=== PATIENT | male | born 1945 | race Caucasian/White ===

== ENCOUNTER 2023-01-05 10:08 | Outpatient (OUT) | payer MEDICARE, SELFPAY ==
[2023-01-05 17:25] LABS: Prostate Specific Antigen Dx <0.13 ng/mL (<=4.00)
== END 2023-01-05 10:09 ==
LOC: LAB 10:08
PROVIDERS: PCP Family Medicine; Visit Provider Urology
DX: C61 Malignant neoplasm of prostate (principal)
CPT/HCPCS: 36415; 84153

== ENCOUNTER 2023-07-20 10:08 | Outpatient (OUT) | payer MEDICARE, SELFPAY ==
[2023-07-20 11:11] LABS: Prostate Specific Antigen Dx <0.13 ng/mL (<=4.00)
== END 2023-07-20 10:09 | disposition home or self-care (01) ==
LOC: LAB 10:10
PROVIDERS: PCP Family Medicine; Visit Provider Urology
DX: C61 Malignant neoplasm of prostate (principal); N40.1 Benign prostatic hyperplasia with lower urinary tract symptoms; Z87.442 Personal history of urinary calculi
CPT/HCPCS: 36415; 84153

== ENCOUNTER 2024-01-06 09:39 | Outpatient (OUT) | payer MEDICARE, SELFPAY ==
--- OUTSIDE RECORDS SUMMARY | 2024-01-06 09:46 | XMS_ITS | CCD ---
Author Organization [facility] ion Partnership [facility] Care Team Providers Care Manager General Name Role Phone Ramonita LEON MICKI Unavailable Unavailable ENGELER G MICKI Unavailable Unavailable ENGELER G MICKI Unavailable Unavailable ENGELER, G MICKI Unavailable Unavailable Elan Perez Primary Care Physician TYREL, DR SHEARER Attending Unavailable CHRISTIANNE, DR GRAY Primary Care Unavailable TYREL, DR SHEARER Admitting Unavailable TYREL, DR SHEARER Consulting Unavailable MAISHA, DR KATHY Pastrana Consulting Unavailable TYREL, DR SHEARER Attending Unavailable CHRISTIANNE, DR GRAY Primary Care Unavailable TYREL, DR SHEARER Admitting Unavailable TYREL, DR SHEARER Consulting Unavailable Inocencio SARAH Attending Unavailable TYREL, Inocencio Casiano Attending Unavailable Inocencio SARAH Attending Unavailable Allergies Allergy Classification Reported Allergen(s) Allergy Type Date of Onset Reaction(s) Facility Opioid Agonists (1 source) Meperidine; Translations: [meperidine] Drug Allergy 04-14-2015 [facility] Repository Promethazine (1 source) Promethazine; Translations: [promethazine] Drug Allergy 04-14-2015 [facility] Repository (1 source) meperidine; Translations: [MEPERIDINE (PF)] Drug Allergy 04-15-2015 [facility] Repository (1 source) promethazine; Translations: [PROMETHAZINE HCL] Drug Allergy 04-15-2015 [facility] Repository (4 sources) Meperidine; Translations: [meperidine] Drug Allergy 04-14-2015 [facility] (4 sources) Promethazine; Translations: [promethazine] Drug Allergy 04-14-2015 [facility] Medications Current Medications Medication Drug Class(es) Dates Sig (Normalized) Sig (Original) Acidophilus Probiotic Blend (4 sources) Start: 03-09-2019 take 1 capsule by mouth once daily Acidophilus Probiotic Blend 1 cap(s), Oral, Daily Start Date: 03/09/19 Status: Ordered alendronic acid 70 mg oral tablet (4 sources) Bisphosphonate Start: 05-06-2023 take 1 tablet by mouth every week Fosamax 70 mg Tab 70 mg = 1 tab(s), Oral, qWeek, # 12 tab(s), Refills(s) 3, Pharmacy: [facility]/pharmacy #[id number], 176, cm, 01/14/23 9:02:00 EDT, Height/Length Dosing, 77.9, kg, 01/14/23 9:02:00 EDT, Weight Dosing Start Date: 05/06/23 Status: Ordered Start: 05-13-2022 take 1 tablet by shawna th every week Fosamax 70 mg oral tablet 70 mg = 1 tab(s), Oral, qWeek, # 13 tab(s), Refills(s) 3, Pharmacy: [facility]/pharmacy #[id number], 175, cm, 01/18/22 10:47:00 EDT, Height/Length Dosing, 80.4, kg, 01/18/22 10:47:00 EDT, Weight Dosing Start Date: 05/13/22 Status: Ordered Start: 06-08-2021 take 1 tablet by shawna th every week Fosamax 70 mg oral tablet 70 mg = 1 tab(s), Oral, qWeek, # 12 tab(s), Refills(s) 3, Pharmacy: [facility]/pharmacy #[id number], 175, cm, 01/09/21 8:30:00 EDT, Height/Length Dosing, 80, kg, 01/09/21 8:30:00 EDT, Weight Dosing Start Date: 06/08/21 Status: Ordered bicalutamide 50 mg oral tablet (4 sources) Androgen Receptor Inhibitor Start: 06-06-2023 take 1 tablet by mouth every twenty-four hours Casodex 50 mg Tab 50 mg = 1 tab(s), Oral, q24hr, # 90 tab(s), Refills(s) 3, Pharmacy: [facility]/pharmacy #[id number], 176, cm, 01/14/23 9:02:00 EDT, Height/Length Dosing, 77.9, kg, 01/14/23 9:02:00 EDT, Weight Dosing Start Date: 06/06/23 Status: Ordered Start: 05-28-2022 take 1 tablet by shawna th every twenty-four hours Casodex 50 mg Tab 50 mg = 1 tab(s), Oral, q24hr, # 90 tab(s), Refills(s) 3, Pharmacy: [facility]/pharmacy #[id number], 175, cm, 01/18/22 10:47:00 EDT, Height/Length Dosing, 80.4, kg, 01/18/22 10:47:00 EDT, Weight Dosing Start Date: 05/28/22 Status: Ordered Start: 05-26-2021 take 1 tablet by shawna th every twenty-four hours Casodex 50 mg Tab 50 mg = 1 tab(s), Oral, q24hr, # 90 tab(s), Refills(s) 3, Pharmacy: [facility]/pharmacy #[id number], 175, cm, 01/09/21 8:30:00 EDT, Height/Length Dosing, 80, kg, 01/09/21 8:30:00 EDT, Weight Dosing Start Date: 05/26/21 Status: Ordered Fish Oils (4 sources) Start: 03-09-2019 Fish Oil 1,200 mg, Oral Start Date: 03/09/19 Status: Ordered 1.5 ml leuprolide acetate 30 mg/ml prefilled syringe (4 sources) Gonadotropin Releasing Hormone Receptor Agonist Start: 03-09-2019 Lupron Depot 45 mg/6 months intramuscular injection, extended release IntraMuscular, q6mo Start Date: 03/09/19 Status: Ordered Multi Vitamins oral tablet (4 sources) Start: 03-09-2019 take 1 tablet by mouth once daily Multi Vitamins oral tablet 1 tab(s), Oral, Daily Start Date: 03/09/19 Status: Ordered Super B Complex (4 sources) Start: 03-09-2019 take 1 tablet by mouth once daily Super B Complex 1 tab(s), Oral, Daily Start Date: 03/09/19 Status: Ordered tamsulosin hydrochloride 0.4 mg oral capsule (4 sources) alpha-Adrenergic Jarett Start: 01-14-2023 take 1 capsule by mouth twice daily Flomax 0.4 mg Cap 0.4 mg = 1 cap(s), Oral, BID, # 180 cap(s), Refills(s) 3, [id number] 176, cm, 01/14/23 9:02:00 EDT, Height/Length Dosing, 77.9, kg, 01/14/23 9:02:00 EDT, Weight Dosing Start Date: 01/14/23 Status: Ordered Start: 01-18-2022 take 1 capsule by [facility] twice daily Flomax 0.4 mg Cap 0.4 mg = 1 cap(s), Oral, BID, # 180 cap(s), Refills(s) 3, [id number] 175, cm, 01/18/22 10:47:00 EDT, Height/Length Dosing, 80.4, kg, 01/18/22 10:47:00 EDT, Weight Dosing Start Date: 01/18/22 Status: Ordered Problems Problem Classification Problem Date Documented Da te Episodic/Chronic Calculus of urinary tract (17 sources) History of calculus of kidney; Translations: [Personal history of urinary calculi] Onset: 01-18-2022 Episodic Cancer of prostate (13 sources) Malignant neoplasm of prostate; Translations: [Carcinoma of prostate] Onset: 03-30-2017 Chronic Cancer of prostate (4 sources) History of malignant neoplasm of prostate 05-18-2019 Episodic Genitourinary symptoms and ill-defined conditions (20 sources) Dysuria; Translations: [Incomplete emptying of bladder] 05-18-2019 Episodic Hyperplasia of prostate (9 sources) Benign prostatic hypertrophy with outflow obstruction; Translations: [Benign prostatic hyperplasia with lower urinary tract symptoms] Onset: 01-18-2022 Chronic Other diseases of bladder and urethra (4 sources) Spasm of bladder 05-18-2019 Chronic Other diseases of kidney and ureters (1 source) Urinary tract obstruction; Translations: [Other obstructive and reflux uropathy] Onset: 01-12-2023 Episodic Other screening for suspected conditions (not mental disorders or infectious disease) (4 sources) Raised prostate specific antigen 11-02-2019 Episodic Secondary malignancies (4 sources) Secondary malignant neoplasm of bone 11-02-2019 Chronic Unclassified (1 source) Unknown / UNK(Unknown) Onset: 03-30-2017 Results Test Name Value Interpretation Reference Range Facility Insurance Correspondenceon 0 01-04-2024 Insurance Correspondence [id number]#[id number] Normal [facility] Patient Educationon 07-29-20 Patient Education Oncology Prostate Cancer The prostate is a small gland that produces fluid that makes up semen (seminal fluid). It is located below the bladder in men, in front of the rectum. Prostate cancer is the abnormal growth of cells in the prostate gland. What are the causes? The exact cause of this condition is not known. What increases the risk? You are more likely to develop this condition if: ? You are 65 years of age or older. ? You have a family history of prostate cancer. ? You have a family history of breast and ovarian cancer. ? You have genes that are passed from parent to child (inherited), such as BRCA1 and BRCA2. ? You have Mason syndrome. men and men of descent are diagnosed with prostate cancer at higher rates than other men. The reasons for this are not well understood and are likely due to a combination of genetic and environmental factors. What are the signs or symptoms? Symptoms of this condition include: ? Problems with urination. This may include: ? A weak or interrupted flow of urine. ? Trouble starting or stopping urination. ? Trouble emptying the bladder all the way. ? The need to urinate more often, especially at night. ? Blood in urine or semen. ? Persistent pain or discomfort in the lower back, lower abdomen, or hips. ? Trouble getting an erection. ? Weakness or numbness in the legs or feet. How is this diagnosed? This condition can be diagnosed with: ? A digital rectal exam. For this exam, a health care provider inserts a gloved finger into the rectum to feel the prostate gland. ? A blood test called a prostate-specific antigen (PSA) test. ? A procedure in which a sample of tissue is taken from the prostate and checked under a microscope (prostate biopsy). ? An imaging test called transrectal ultrasonography. Once the condition is diagnosed, tests will be done to determine how far the cancer has spread. This is called staging the cancer. Staging may involve imaging tests, such as a bone scan, CT scan, PET scan, or MRI. Stages of prostate cancer The stages of prostate cancer are as follows: ? Stage 1 (I). At this stage, the cancer is found in the prostate only. The cancer is not visible on imaging tests, and it is usually found by accident, such as during prostate surgery. ? Stage 2 (II). At this stage, the cancer is more advanced than it is in stage 1, but the cancer has not spread outside the prostate. ? Stage 3 (III). At this stage, the cancer has spread beyond the outer layer of the prostate to nearby tissues. The cancer may be found in the seminal vesicles, which are near the bladder and the prostate. ? Stage 4 (IV). At this stage, the cancer has spread to other parts of the body, such as the lymph nodes, bones, bladder, rectum, liver, or lungs. Prostate cancer grading Prostate cancer is also graded according to how the cancer cells look under a microscope. This is called the Surrency score and the total score can range from 6?10, indicating how likely it is that the cancer will spread (metastasize) to other parts of the body. The higher the score, the greater the likelihood that the cancer will spread. ? Bart 6 or lower: This indicates that the cancer cells look similar to normal prostate cells (well differentiated). ? Surrency 7: This indicates that the cancer cells look somewhat similar to normal prostate cells (moderately differentiated). ? Surrency 8, 9, or 10: This indicates that the cancer cells look very different than normal prostate cells (poorly differentiated). How is this treated? Treatment for this condition depends on several factors, including the stage of the cancer, your age, personal preferences, and your overall health. Talk with your health care provider about treatment options that are recommended for you. Common treatments include: ? Observation for early stage prostate cancer (active surveillance). This involves having exams, blood tests, and in some cases, more biopsies. For some men, this is the only treatment needed. ? Surgery. Types of surgeries include: ? Open surgery (radical prostatectomy). In this surgery, a larger incision is made to remove the prostate. ? A laparoscopic radical prostatectomy. This is a surgery to remove the prostate and lymph nodes through several small incisions. It is often referred to as a minimally invasive surgery. ? A robotic radical prostatectomy. This is laparoscopic surgery to remove the prostate and lymph nodes with the help of robotic arms that are controlled by the surgeon. ? Cryoablation. This is surgery to freeze and destroy cancer cells. ? Radiation treatment. Types of radiation treatment include: ? External beam radiation. This type aims beams of radiation from outside the body at the prostate to destroy cancerous cells. ? Brachytherapy. This type uses radioactive needles, seeds, wires, or tubes that are implanted into the prostate gland. Like external be (more content not included)... Normal [facility] Urology Office/Clinic Noteon 07-29-2023 Urology Office/Clinic Note Chief Complaint 6m PSA possible Lupron HPI Staff 77 yo male here for 6 month f/u possible Lupron Inj (has been approved w/insurance). Previous Dx: prostate ca, BPH with obstruction, hx of kidney stones. S/p EBRT 06/2015. *Tamsulosin 0.4mg bid, Casodex 50mg qd, and Fosamax 1x/wk. Last Lupron given 07/19/22. PSA 07/20/23 - <0.13 Pt denies all urinary complaints. Denies any symptoms of Kidney Stones. History of Present Illness Tests reviewed: reviewed UA and PSA. I have reviewed the previous health record information and history for this patient from Dr. Sarah. I have reviewed and verified the staff HPI to be accurate for this encounter. There have been no associated fever, chills, flank pain, or blood in the urine. Denies any urinary infections since last encounter. Review of Systems PHQ Score Initial Depression Screen Score: 0 SCORE ROS - Provider Constitutional: denies weight loss, denies hot flashes. Eyes: denies eye problems. Gastrointestinal: denies nausea, denies vomiting. Cardiovascular: denies chest pain or angina. Integumentary: no dryness Musculoskeletal: denies musculoskeletal symptoms. ENMT: denies otolaryngeal symptoms. Respiratory: no shortness of breath. Heme/Lymph: denies easy bleeding tendency, denies easy bruising tendency. Psychiatric: no confusion, no anxiety. Genitourinary: See HPI. Physical Exam Vitals & Measurements HR: 68(Peripheral) RR: 16 BP: 132/80 HT: 69 in HT: 176 cm WT: 77.9 kg WT: 171.38 lb BMI: 25.15 General Appearance: alert, no distress, well nourished, well developed male. Genitourinary: normal scrotum, normal testes, normal urethra, normal epididymis, normal vas deferens/spermatic cord. Flank Pain: none. Bladder: nonpalpable. Assessment/Plan 1. Prostate cancer (C61: Malignant neoplasm of prostate) PSA: 07/06/21 - 0.05 01/11/22 - 0.05 07/07/22 - 0.13 01/05/23 - <0.13 07/20/23 - <0.13 Original pathology showed Surrency 9 (4+5) in multiple cores. PSA prior to bx was 62. EBRT 06/2015. Taking Casodex 50mg QD and Fosamax 70mg 1x/wk. Taking calcium & Vit D. Last Lupron 01/14/23. Lupron 45 mgIM injection given today with no complications. Right glute. Pt. denies side effects at this time. Follow up in 6 months w/ PSA & Lupron or sooner if needed. 2. BPH with urinary obstruction (N40.1: Benign prostatic hyperplasia with lower urinary tract symptoms) Taking Flomax 0.4mg bid. UA today negative for blood and infection. No urinary concerns or bothersome sx. 3. History of kidney stones (Z87.442: Personal history of urinary calculi) KUB done 12/30/20 was unremarkable. Most recent KUB done at [facility] on 07/07/22 shows no acute abnormality. No recent imaging. Follow-up With When Contact Information TYREL HINES, Inocencio Casiano, URL [facility] [place] [id number]- Additional Instructions: 6 months w/ Lupron and PSA Patient Education Prostate Cancer IPaula, personally scribed for Dr. Sarah on 07/29/2023 12:30:58. . Documentation recorded by the scribePaula, accurately reflects the services(s) I performed and decisions made by me. Authenticated by Dr. Sarah on 07/29/2023 12:32:18. Problem List/Past Medical History Ongoing Bladder spasms BPH with urinary obstruction Dysuria History of kidney stones History of prostate cancer Incomplete emptying of bladder Kidney stones Metastasis to bone Microhematuria Nocturia Prostate cancer Ureteral stone Weak urinary stream Historical Elevated PSA Procedure/Surgical History Cystoscopic insertion of ureteric stent (05/17/2019), History of external beam radiation therapy (06/2015), Transrectal biopsy of prostate using ultrasound (US) guidance (02/04/2015), Colonoscopy (01/2015). Medications Acidophilus Probiotic Blend, 1 cap(s), Oral, Daily Casodex 50 mg Tab, 50 mg= 1 tab(s), Oral, q24hr, 3 refills Fish Oil, 1200 mg, Oral Flomax 0.4 mg Cap, 0.4 mg= 1 cap(s), Oral, BID, 3 refills Fosamax 70 mg Tab, 70 mg= 1 tab(s), Oral, qWeek, 3 refills Lupron Depot 45 mg/6 months intramuscular injection, extended release, IntraMuscular, q6mo Multi Vitamins oral tablet, 1 tab(s), Oral, Daily Super B Complex, 1 tab(s), Oral, Daily Allergies meperidine (AOF) promethazine (AOF) Social History Alcohol - Denies Alcohol Use, 01/14/2023 Substance Abuse - Denies Substance Abuse, 01/14/2023 Tobacco - Denies Tobacco Use, 01/14/2023 Never (less than 100 in lifetime) Tobacco Use:. Never Smokeless Tobacco Use:. Household tobacco concerns: No. Yes, 07/29/2023 Family History Acute myocardial infarction: Father. Primary malignant neoplasm of lung: Mother. Immunizations Vaccine Date Status Comments SARS-CoV-2 (COVID-19) [id number] 04/15/2022 Recorded SARS-CoV-2 (COVID-19) mRNA BNT-162b2 vax 11/04/2021 Recorded SARS-CoV-2 (COVID-19) Ad26 vaccine 04/27/2021 Recorded inf (more content not included)... [facility] Comment on above: Result Comment: Elec tronically Signed By: Inocencio SARAH MD\.br\Date and Time Signed: 07/29/23 12:32 EST\.br\Electronically Co-Signed By: Paula Madison.br\Date and Time Co-Signed: 07/29/23 12:31 EST Lab Reportson 07-26-2023 Lab Reports [id number]#[id number] [facility] Insurance Correspondenceon 1 08-27-2022 Insurance Correspondence [id number]#1.00TIFF Normal [facility] Pre-Certification Formon Pre-Certification Form [id number]#[id number] Normal [facility] Lab Report[facility] 01-17-2023 Lab Reports [id number]#[id number]:127 Normal [facility] Lab Report[facility] 01-14-2023 Lab Reports [id number]:127 Normal [facility] Patient Educationon 01-15-20 Patient Education Urology Benign Prostatic Hyperplasia Benign prostatic hyperplasia (BPH) is an enlarged prostate gland that is caused by the normal aging process. The prostate may get bigger as a man gets older. The condition is not caused by cancer. The prostate is a walnut-sized gland that is involved in the production of semen. It is located in front of the rectum and below the bladder. The bladder stores urine. The urethra carries stored urine out of the body. An enlarged prostate can press on the urethra. This can make it harder to pass urine. The buildup of urine in the bladder can cause infection. Back pressure and infection may progress to bladder damage and kidney (renal) failure. What are the causes? This condition is part of the normal aging process. However, not all men develop problems from this condition. If the prostate enlarges away from the urethra, urine flow will not be blocked. If it enlarges toward the urethra and compresses it, there will be problems passing urine. What increases the risk? This condition is more likely to develop in men older than 50 years. What are the signs or symptoms? Symptoms of this condition include: ? Getting up often during the night to urinate. ? Needing to urinate frequently during the day. ? Difficulty starting urine flow. ? Decrease in size and strength of your urine stream. ? Leaking (dribbling) after urinating. ? Inability to pass urine. This needs immediate treatment. ? Inability to completely empty your bladder. ? Pain when you pass urine. This is more common if there is also an infection. ? Urinary tract infection (UTI). How is this diagnosed? This condition is diagnosed based on your medical history, a physical exam, and your symptoms. Tests will also be done, such as: ? A post-void bladder scan. This measures any amount of urine that may remain in your bladder after you finish urinating. ? A digital rectal exam. In a rectal exam, your health care provider checks your prostate by putting a lubricated, gloved finger into your rectum to feel the back of your prostate gland. This exam detects the size of your gland and any abnormal lumps or growths. ? An exam of your urine (urinalysis). ? A prostate specific antigen (PSA) screening. This is a blood test used to screen for prostate cancer. ? An ultrasound. This test uses sound waves to electronically produce a picture of your prostate gland. Your health care provider may refer you to a specialist in kidney and prostate diseases (urologist). How is this treated? Once symptoms begin, your health care provider will monitor your condition (active surveillance or watchful waiting). Treatment for this condition will depend on the severity of your condition. Treatment may include: ? Observation and yearly exams. This may be the only treatment needed if your condition and symptoms are mild. ? Medicines to relieve your symptoms, including: ? Medicines to shrink the prostate. ? Medicines to relax the muscle of the prostate. ? Surgery in severe cases. Surgery may include: ? Prostatectomy. In this procedure, the prostate tissue is removed completely through an open incision or with a laparoscope or robotics. ? Transurethral resection of the prostate (TURP). In this procedure, a tool is inserted through the opening at the tip of the penis (urethra). It is used to cut away tissue of the inner core of the prostate. The pieces are removed through the same opening of the penis. This removes the blockage. ? Transurethral incision (TUIP). In this procedure, small cuts are made in the prostate. This lessens the prostate's pressure on the urethra. ? Transurethral microwave thermotherapy (TUMT). This procedure uses microwaves to create heat. The heat destroys and removes a small amount of prostate tissue. ? Transurethral needle ablation (TUNA). This procedure uses radio frequencies to destroy and remove a small amount of prostate tissue. ? Interstitial laser coagulation (ILC). This procedure uses a laser to destroy and remove a small amount of prostate tissue. ? Transurethral electrovaporization (TUVP). This procedure uses electrodes to destroy and remove a small amount of prostate tissue. ? Prostatic urethral lift. This procedure inserts an implant to push the lobes of the prostate away from the urethra. Follow these instructions at home: ? Take [id number] and prescription medicines only as told by your health care provider. ? Monitor your symptoms for any changes. Contact your health care provider with any changes. ? Avoid drinking large amounts of liquid before going to bed or out in public. ? Avoid or reduce how much caffeine or alcohol you drink. ? Give yourself time when you urinate. ? Keep all follow-up visits. This is important. Contact a health care provider if: ? You have unexplained back pain. ? Your symptoms do not get better with treatment. ? You develop side effects from the medicine (more content not included)... Normal [facility] Urology Office/Clinic Noteon 01-14-2023 Urology Office/Clinic Note Chief Complaint Patient is here for 6 month follow up with PSA HPI Staff Patient is here for 6 month follow up to Prostate cancer, S/P EBRT completed in 06/2015. Last Lupron was given 07/19/22. Patient also seen for BPH with Obs, history of kidney stones. PSA was done 01/05/2023 <0.13. Tamsulosin 0.4 mg BID and Casodex 50mg qd therapies. Dysuria: Denies Incomplete bladder emptying: Denies Hematuria: Denies Frequency: Denies Urgency: Denies Nocturia: Mild, 1 time per night for 2 years Stream: Good stream Leaking: Denies Post void dripping: Denies Wearing pads/ Depends: Denies Urge incontinence: Denies Stress incontinence: Denies Incontinence without Sensory Awareness: Denies Abdominal pain: Denies Flank pain: Denies History of Present Illness Tests reviewed: reviewed UA I have reviewed the previous health record information and history for this patient from Dr. Sarah. I have reviewed and verified the staff HPI to be accurate for this encounter. There have been no associated fever, chills, flank pain, or blood in the urine. Denies any urinary infections since last encounter. Review of Systems PHQ Score Initial Depression Screen Score: 0 ROS - Provider Constitutional: denies weight loss, denies hot flashes. Eyes: denies eye problems. Gastrointestinal: denies nausea, denies vomiting. Cardiovascular: denies chest pain or angina. Integumentary: no dryness Musculoskeletal: denies musculoskeletal symptoms. ENMT: denies otolaryngeal symptoms. Respiratory: no shortness of breath. Heme/Lymph: denies easy bleeding tendency, denies easy bruising tendency. Psychiatric: no confusion, no anxiety. Genitourinary: denies dysuria, denies hematuria, denies discharge, denies urinary frequency, denies urinary hesitancy, denies nocturia, denies incontinence, denies genital sores, denies decreased libido, and denies erectile dysfunction. Physical Exam Vitals & Measurements HR: 89(Peripheral) RR: 18 BP: 144/82 HT: 69 in HT: 176 cm WT: 77.9 kg WT: 171.38 lb BMI: 25.15 General Appearance: alert, no distress, well nourished, well developed male. Genitourinary: normal scrotum, normal testes, normal urethra, normal epididymis, normal vas deferens/spermatic cord. Flank Pain: none. Bladder: nonpalpable. Assessment/Plan 1. Prostate cancer (C61: Malignant neoplasm of prostate) PSA: 07/06/21 - 0.05 01/11/22 - 0.05 07/07/22 - 0.13 01/05/23 - <0.13 S/p EBRT 06/2015. Pt continues taking Casodex 50mg QD and Fosamax 70mg 1x/wk. Pt will call for refills. Last Lupron injection given 07/19/22. Discussed PSA, remains stable and low. Will continue to monitor. Lupron 45 mgIM injection given today with no complications. Left glute. Pt denies side effects at this time. All questions/concerns were discussed. Pt to call the office if he encounters any issues prior. Pt acknowledges understanding and agrees with plan. Follow up in 6 months with PSA or sooner if needed. Pt understands and agrees with plan. 2. BPH with urinary obstruction (N40.1: Benign prostatic hyperplasia with lower urinary tract symptoms) Pt continues taking Flomax 0.4mg BID. Refill sent to pharmacy. UA today negative for blood and infection. Pt denies any urinary habit complaints. 3. History of kidney stones (Z87.442: Personal history of urinary calculi) KUB done 12/30/20 was unremarkable. Most recent KUB done at [facility] on 07/07/22 shows no acute abnormality. Pt denies any stone complications since prior encounter will continue to monitor. Follow up in 6 months with KUB. Other obstructive and reflux uropathy (N13.8: Other obstructive and reflux uropathy) Follow-up With When Contact Information Inocencio SARAH MD, URL In 6 months [facility] [address], [place] [address]- [phone] Additional Instructions: PSA Patient Education Benign Prostatic Hyperplasia I, Janessa Gomez, personally scribed for Dr. Sarah on 01/14/2023 09:47:00. . Documentation recorded by the scribe, Janessa Gomez, accurately reflects the services(s) I performed and decisions made by me. Authenticated by Dr. Sarah on 01/14/2023 09:48:59. Problem List/Past Medical History Ongoing Bladder spasms BPH with urinary obstruction Dysuria History of kidney stones History of prostate cancer Incomplete emptying of bladder Kidney stones Metastasis to bone Microhematuria Nocturia Prostate cancer Ureteral stone Weak urinary stream Historical Elevated PSA Procedure/Surgical History Cystoscopic insertion of ureteric stent (05/17/2019), History of external beam radiation therapy (06/2015), Transrectal biopsy of prostate using ultrasound (US) guidance (02/04/2015), Colonoscopy (01/2015). Medications Acidophilus Probiotic Blend, 1 cap(s), Oral, Daily Casodex 50 mg Tab, 50 mg= 1 tab(s), Oral, q24hr, 3 refills Fish Oil, 1200 mg, Oral Flomax 0.4 mg Cap, 0.4 mg= 1 cap(s), Oral, BI (more content not included)... Normal [facility] Comment on above: Result Comment: Elec tronically Signed By: Inocencio SARAH MD\.br\Date and Time Signed: 01/14/23 09:49 EDT\.br\Electronically Co-Signed By: Janessa Gomez.jaime\Date and Time Co-Signed: 01/14/23 09:47 EDT XR KUB 1 VIEWon 07-07-2022 XR KUB 1 VIEW EXAMINATION: XR KUB 1 VIEW HISTORY: Primary malignant neoplasm of prostate COMPARISON: No relevant comparison available. FINDINGS: BOWEL GAS PATTERN: No abnormal dilation or deviation. CALCIFICATIONS: None significant. OTHER: Moderate bilateral hip osteoarthropathy. Degenerative spondylosis of the spine IMPRESSION: No acute abnormality Electronically authenticated by: KATHY FERRERA Date: 2022-07-07 11:50 Normal [facility] CNOVon 04-06-2017 CNOV Office Visit (RADTSA) -------LORRAINE INFANTE ([id number]) 1945 MDate Time Provider Department04/06/17 11:00 AM Ramonita LEON During your visit today, we recorded the following information about you: Blood pressure Weight 170/84 79 kgCindy Bear, RN, RN 04/06/2017 11:05 AM SignedAUA 14Cindy Bear RNG Micki Leon MD 04/08/2017 2:42 PM SignedRadiation Oncology - Follow Up NotePATIENT NAME: Lorraine InfantePATIENT : Prostate cancer, adenocarcinomaGleason score 9(4,5)Pretreatment PSA: PSA 62.1With solitary pelvic metastatic focus Stage: [id number] Course SummaryTreatment Technique: IMRT;RA Imaging: kv cone beam CT image guidanceDate Start: 04/15/2015 Date Complete: 06/16/2015Treatment Area Number [employer] Number of Fractions (Elapsed Days) DosePelvis including left ischium 2 6MV 28(37) 5040cGyProstate 2 6MV 16(24) 2880cGyTotal Prostate 44(61) 7920cGyINTERVAL HISTORY: The patient is in today for a follow-up. Overall doingwell. Denies any new problems.PSA HISTORY:PSA (ng/mL)Date Value03/30/2017 ANDlt;0.03008/18/2016 ANDlt;0.0306 ANDlt;0.0312 0.08 ALLERGIES:ALL ERGIESAllergen Reactions- Demerol [Meperidine* Other: See Comments hypotension- Phenergan [Prometha* Other: See Comments hypotensionMEDICATIONS:nabu metone (RELAFEN) 750 mg tablet Take 750 mg by mouth twice daily.leuprolide, 6 month, (LUPRON) sykt IM syringe kit Inject 45 mg intramuscularlyone time only.alendronate (FOSAMAX) 70 mg tablet Take 70 mg by mouth once each week.tamsulosin ER (FLOMAX) 0.4 mg cp24 twice daily.multivitamin tablet Take 1 tablet by mouth once daily.PERTINENT REVIEW OF SYSTEMS:Hematuria: noneDysuria: noneIncontinence: noneUrgency: mildCatheter use: noneMedications to aid urination: Flomax- Total AUA Score: 8Bowel movement frequency: 1-2/dayBowel movement quality: variable:Blood per rectum: nonePHYSICAL EXAM:BP 170/84 Wt 79 kg (174 lb 3.2 oz) BMI 26.1 kg/k4Utbmips Appearance: Well appearing, alert, in no acute distress, well-hydrated,well nourished..Skin: Skin color, texture, turgor normal, no suspicious rashes or lesions.Abdomen: Normal abdominal exam, Abdomen soft, non-tender. No masses,organomegaly.Rectal: Prostate without nodularityASSESSMENT/PLAN: Prostate cancer, locally advanced with oligometastatic diseaseincluding 1 foci involving the left pubic ramus. Patient doing well with continued undetectable PSA. No significant posttreatment problems. Patient has continued follow-up with Dr. Tyrel de la torre to receive Lupron.I've asked patient otherwise come back in one year for further post radiationfollow-up.Signed by: Ramonita Leon [facility] Provider: Ramonita LEON [[id number]]Allergies As of Date: 04/06/2017 Noted Allergy ReactionDEMEROL (MEPERIDINE (PF)) 04/15/2015 14 - Other: See Comments Comments: hypotensionPHENERGAN (PROMETHAZINE HCL) 04/15/2015 14 - Other: See Comments Comments: hypotensionDate Reviewed: 04/06/2017Reviewed by: Cindy QuinonesRnBairon Bear RN - Fully AssessedReason for Visit: Prostate Cancer [590]Primary Visit Diagnosis:Malignant neoplasm of prostate (HCC) [C61]Order(s):PSA/PROSTSPEC AG DIAG [SQPSA] Order #: [id number] FUTUREPrescriptions as of 04/06/2017 Sig: NABUMETONE 750 MG TABLET Take 750 mg by mouth twice da* LEUPROLIDE (6 MONTH) 45 MG IN* Inject 45 mg intramuscularly * ALENDRONATE 70 MG TABLET Take 70 mg by mouth once each* TAMSULOSIN 0.4 MG CAPSULE twice daily. MULTIVITAMIN TABLET Take 1 tablet by mouth once d*Medication notes this encounter NABUMETONE 750 MG TABLET >> Cindy Bear RN, RN 04/06/2017 10:52 AM >> CINDY BEAR TueApr 06, 2017 10:52 AM Received from: External Pharmacy Received Sig: TAKE 1 TABLET BY MOUTH TWICE ADAYProblem List As Of Date 04/06/2017 Noted Resolved Malignant neoplasm of prostate (HCC) [C61] INVALID FOR*Visit Notes:>> Cindy Bear RN TueApr 06, 2017 10:53 AM Status: SignedAUA Mahogany Bear RNDisposition: Return in about 1 year (around 04/06/2018).Follow-up and Disposition History RecordedEncounter Number: [id number] Status:Closed by Ramonita LEON MD on 04/08/17 [facility] PROGRESSon 04-06-2017 PROGRESS HNO ID: [id number] thor: Ramonita Romeorervice: (none)Author Type: PhysicianType: Progress NotesFiled: 04/08/2017 2:42 PMNote Text:Radiation Oncology - Follow Up NotePATIENT NAME: Lorraine InfantePATIENT : Prostate cancer, adenocarcinomaGleason score 9(4,5)Pretreatment PSA: PSA 62.1With solitary pelvic metastatic focus Stage: [id number] Course SummaryTreatment Technique: IMRT;RA Imaging: kv cone beam CT image guidanceDate Start: 04/15/2015 Date Complete: 06/16/2015Treatment Area Number [employer] Number of Fractions (Elapsed Days)DosePelvis including left ischium 2 6MV 28(37) 5040cGyProstate 2 6MV 16(24) 2880cGyTotal Prostate 44(61) 7920cGyINTERVAL HISTORY: The patient is in today for a follow-up. Overall doingwell. Denies any new problems.PSA HISTORY:PSA (ng/mL)Date Value03/30/2017 <0.0301/ <0.0306 <0.0312/ 0.08 ALLERGIES:ALL ERGIESAllergen Reactions- Demerol [Meperidine* Other: See Comments hypotension- Phenergan [Prometha* Other: See Comments hypotensionMEDICATIONS:nabu metone (RELAFEN) 750 mg tablet Take 750 mg by mouth twice daily.leuprolide, 6 month, (LUPRON) sykt IM syringe kit Inject 45 mgintramuscularly one time only.alendronate (FOSAMAX) 70 mg tablet Take 70 mg by mouth once each week.tamsulosin ER (FLOMAX) 0.4 mg cp24 twice daily.multivitamin tablet Take 1 tablet by mouth once daily.PERTINENT REVIEW OF SYSTEMS:Hematuria: noneDysuria: noneIncontinence: noneUrgency: mildCatheter use: noneMedications to aid urination: Flomax- Total AUA Score: 8Bowel movement frequency: 1-2/dayBowel movement quality: variable:Blood per rectum: nonePHYSICAL EXAM:BP 170/84 Wt 79 kg (174 lb 3.2 oz) BMI 26.1 kg/w6Tekqrob Appearance: Well appearing, alert, in no acute distress,well-hydrated, well nourished..Skin: Skin color, texture, turgor normal, no suspicious rashes or lesions.Abdomen: Normal abdominal exam, Abdomen soft, non-tender. No masses,organomegaly.Rectal: Prostate without nodularityASSESSMENT/PLAN: Prostate cancer, locally advanced with oligometastaticdisease including 1 foci involving the left pubic ramus. Patient doing well with continued undetectable PSA. No significantpost treatment problems. Patient has continued follow-up with Dr. Benjamin continues to receive Lupron.I've asked patient otherwise come back in one year for further postradiation follow-up.Signed by: Ramonita Leon MD Normal [facility] PSA, Diagnosticon 03-30-2017 PSA, Diagnostic <0.03 Normal 0.00-2.59 [facility] Comment on above: Result Comment: Divya rod PSA test methodology used is the Electrochemiluminescence Immunoassay.For an individual patient, the significance of a PSA level should be interpreted in a broad clinical context, including age, race, family history, digital rectal exam, prostate size, results of prior testing (prostate biopsy, free PSA, PCA3), and use of 5-alpha reductase inhibitors.Considering the high incidence of asymptomatic cancer in the general population that may not pose an ultimate risk to a patient, the decision to recommend urological evaluation or prostate biopsy should be individualized after consideration of all these factors.REFERENCE:Ben Judd M.D., M.P.H., Roly Riddle M.D., Ph.D., Gio Marshall M.D., Janice Diaz, M.P.H., Sherlyn Van Sc.D. Effect of Verification Bias on Screening for Prostate Cancer by Measurement of Prostatic Specific Antigen. N Engl J Med 2003,349:335-42. Performed By: #### P SA ####[facility] [address] [place], [place] [phone] Vital Signs Date Time Vital Sign Value Performing Clinician Nicolas torres 07-29-2023 11:05-0500 Blood Pressure Location Inocencio SARAH [facility] 07-29-2023 11:05-0500 Diastolic blood pressure 80 mm[Hg] Inocencio SARAH [facility] 07-29-2023 11:05-0500 Heart rate 68 /min Inocencio SARAH [facility] 07-29-2023 11:05-0500 Respiratory rate 16 /min Inocencio SARAH [facility] 07-29-2023 11:05-0500 Systolic blood pressure 132 mm[Hg] Inocencio SARAH [facility] 01-14-2023 09:42-0400 Diastolic blood pressure 82 mm[Hg] Inocencio SARAH [facility] 01-14-2023 09:42-0400 Heart rate 89 /min Inocencio SARAH [facility] 01-14-2023 09:42-0400 Mean blood pressure 103 mm[Hg] Inocencio SARAH [facility] 01-14-2023 09:42-0400 Respiratory rate 18 /min Inocencio SARAH [facility] 01-14-2023 09:42-0400 Systolic blood pressure 144 mm[Hg] Inocencio SARAH [facility] 01-14-2023 08:58-0400 Blood Pressure Location Inocencio SARAH [facility] 01-14-2023 08:58-0400 Diastolic blood pressure 93 mm[Hg] Inocencio SARAH [facility] 01-14-2023 08:58-0400 Heart rate 82 /min Inocencio SARAH [facility] 01-14-2023 08:58-0400 Respiratory rate 18 /min Inocencio SARAH [facility] 01-14-2023 08:58-0400 Systolic blood pressure 166 mm[Hg] Inocencio SARAH [facility] 07-19-2022 10:03-0500 Blood Pressure Location Inocencio SARAH [facility] 07-19-2022 10:03-0500 Diastolic blood pressure 82 mm[Hg] Inocencio SARAH [facility] 07-19-2022 10:03-0500 Heart rate 74 /min Inocencio SARAH [facility] 07-19-2022 10:03-0500 Respiratory rate 16 /min Inocencio SARAH [facility] 07-19-2022 10:03-0500 Systolic blood pressure 140 mm[Hg] Inocencio SARAH [facility] 01-18-2022 10:39-0400 Blood Pressure Location Inocencio SARAH [facility] 01-18-2022 10:39-0400 Diastolic blood pressure 90 mm[Hg] Inocencio SARAH [facility] 01-18-2022 10:39-0400 Heart rate 75 /min Inocencio SARAH [facility] 01-18-2022 10:39-0400 Respiratory rate 16 /min Inocencio SARAH [facility] 01-18-2022 10:39-0400 Systolic blood pressure 140 mm[Hg] Inocencio SARAH [facility] Encounters Encounter Date Encounter Type Care Provider Facility Start: 01-23-2024 ambulatory Inocencio Salmoni ty:[facility] [place] Start: 07-29-2023 End: 07-29-2023 ambulatory Inocencio SARAH Facility:[facility] [place] Start: 07-29-2023 End: 07-29-2023 Patient encounter procedure Inocencio SARAH [facility] Start: 01-14-2023 End: 01-14-2023 ambulatory Inocencio SARAH Facility:[facility] [place] Start: 01-14-2023 End: 01-14-2023 Patient encounter procedure Inocencio SARAH [facility] Start: 07-19-2022 End: 07-19-2022 Patient encounter procedure Inocencio SARAH [facility] Start: 07-07-2022 End: 07-08-[address] INOCENCIO SARAH Facility:[facility] Start: 01-18-2022 End: 01-18-2022 Patient encounter procedure Inocencio SARAH [facility] Start: 01-11-2022 End: 01-12-[address] INOCENCIO SARAH Facility:[facility] Start: 04-06-2017 End: 04-11-2017 Ambulatory Ramonita LEON [facility] Start: 03-30-2017 End: 03-30-2017 Ambulatory Ramonita LEON [facility] Procedures Date Procedure Procedure Detail Performing Clinician Start: 07-07-[address] JOYCELYN SARAH Comment on above: Performed By: #### P SAD #### [facility] [address] [place] [address] Dr. Shanita Hayden Start: 01-11-[address] JOYCELYN SARAH Comment on above: Performed By: #### P SAD #### [facility] [address] [place] [address] Dr. Shanita Hayden Start: 05-17-2019 Cystoscopic insertio n of ureteric stent Inocenciogermania SARAH Start: 06-01-2015 History of external beam radiation therapy Inocenciogermania SARAH Comment on above: Prostate Cancer Start: 02-04-2015 Transrectal biopsy o f prostate using ultrasound guidance Inocenciogermania SARAH Start: 01-29-2015 Colonoscopy Inocencio JEWELL Immunizations Immunization Date Immunization Notes Care Provider [place] 04-15-2022 SARS-CoV-2 (COVID-19 ) [id number] Inocenciogermania SARAH [facility] 11-04-2021 SARS-CoV-2 (COVID-19 ) mRNA BNT-162b2 vax Inocencio SARAH [facility] 04-27-2021 SARS-CoV-2 (COVID-19 ) Ad26 vaccine, recombinant Inocencio SARAH [facility] 04-26-2021 influenza virus vaccine, unspecified formulation Inocenciogermania SARAH [facility] 10-13-2020 SARS-CoV-2 (COVID-19 ) mRNA BNT-162b2 vax Inocencio TYREL [facility] 09-18-2020 SARS-CoV-2 (COVID-19 ) mRNA BNT-162b2 vax Inocencio TYREL [facility] Comment on above: Result Comment: 2021: [id number] 09-15-2020 SARS-CoV-2 (COVID-19 ) mRNA BNT-162b2 vax Inocencio Lingotek [facility] 08-28-2020 SARS-CoV-2 (COVID-19 ) mRNA BNT-162b2 vax Inocencio Lingotek [facility] Comment on above: Result Comment: 2021: [id number] NEGATED: Highlighted row has not occurred!11-02-2019 influenza virus vaccine, live, attenuated, for intranasal use [employer] (roll.to) [facility] Payers Date Payer Category Payer Medicare [id number] 1960 Medicare [id number] 1945 Unknown [id number] 2.16.84 [id number] 1945 Unknown [id number] 2.16.84 [id number] 1945 Unknown [id number] [id number] 1945 Unknown [id number] 2.16.8 [id number] 1945 Unknown [id number] 2.16.8 [id number] Social History Date Type Detail Facility Start: 07-20-2021 End: 07-29-2023 Tobacco smoking status Never smoked tobacco (finding) [facility] Sex Assigned At Male [facility] Tobacco smoking status Never [facility] Functional Status Date Assessment Result Facility 07-29-2023 Functional Status N/A [facility] 01-14-2023 Functional Status No [facility] 07-19-2022 Functional Status N/A [facility] 01-18-2022 Functional Status N/A [facility] Hospital Discharge instructions 07-29-2023 Note Date & Type Note Facility 07-29-2023 Hospital Discharg e instructions Patient Education 07/29/2023 12:27:43 Prostate Cancer Prostate Cancer The prostate is a small gland that produces fluid that makes up semen (seminal fluid). It is located below the bladder in men, in front of the rectum. Prostate cancer is the abnormal growth of cells in the prostate gland. What are the causes? The exact cause of this condition is not known. What increases the risk? You are more likely to develop this condition if: You are 65 years of age or older. You have a family history of prostate cancer. You have a family history of breast and ovarian cancer. You have genes that are passed from parent to child (inherited), such as BRCA1 and BRCA2. You have Mason syndrome. men and men of descent are diagnosed with prostate cancer at higher rates than other men. The reasons for this are not well understood and are likely due to a combination of genetic and environmental factors. What are the signs or symptoms? Symptoms of this condition include: Problems with urination. This may include: ?A weak or interrupted flow of urine. ?Trouble starting or stopping urination. ?Trouble emptying the bladder all the way. ?The need to urinate more often, especially at night. Blood in urine or semen. Persistent pain or discomfort in the lower back, lower abdomen, or hips. Trouble getting an erection. Weakness or numbness in the legs or feet. How is this diagnosed? This condition can be diagnosed with: A digital rectal exam. For this exam, a health care provider inserts a gloved finger into the rectum to feel the prostate gland. A blood test called a prostate-specific antigen (PSA) test. A procedure in which a sample of tissue is taken from the prostate and checked under a microscope (prostate biopsy). An imaging test called transrectal ultrasonography. Once the condition is diagnosed, tests will be done to determine how far the cancer has spread. This is called staging the cancer. Staging may involve imaging tests, such as a bone scan, CT scan, PET scan, or MRI. Stages of prostate cancer The stages of prostate cancer are as follows: Stage 1 (I). At this stage, the cancer is found in the prostate only. The cancer is not visible on imaging tests, and it is usually found by accident, such as during prostate surgery. Stage 2 (II). At this stage, the cancer is more advanced than it is in stage 1, but the cancer has not spread outside the prostate. Stage 3 (III). At this stage, the cancer has spread beyond the outer layer of the prostate to nearby tissues. The cancer may be found in the seminal vesicles, which are near the bladder and the prostate. Stage 4 (IV). At this stage, the cancer has spread to other parts of the body, such as the lymph nodes, bones, bladder, rectum, liver, or lungs. Prostate cancer grading Prostate cancer is also graded according to how the cancer cells look under a microscope. This is called the Bart score and the total score can range from 6 10, indicating how likely it is that the cancer will spread (metastasize) to other parts of the body. The higher the score, the greater the likelihood that the cancer will spread. Bart 6 or lower: This indicates that the cancer cells look similar to normal prostate cells (well differentiated). Bart 7: This indicates that the cancer cells look somewhat similar to normal prostate cells (moderately differentiated). Bart 8, 9, or 10: This indicates that the cancer cells look very different than normal prostate cells (poorly differentiated). How is this treated? Treatment for this condition depends on several factors, including the stage of the cancer, your age, personal preferences, and your overall health. Talk with your health care provider about treatment options that are recommended for you. Common treatments include: Observation for early stage prostate cancer (active surveillance). This involves having exams, blood tests, and in some cases, more biopsies. For some men, this is the only treatment needed. Surgery. Types of surgeries include: ?Open surgery (radical prostatectomy). In this surgery, a larger incision is made to remove the prostate. ?A laparoscopic radical prostatectomy. This is a surgery to remove the prostate and lymph nodes through several small incisions. It is often referred to as a minimally invasive surgery. ?A robotic radical prostatectomy. This is laparoscopic surgery to remove the prostate and lymph nodes with the help of robotic arms that are controlled by the surgeon. ?Cryoablation. This is surgery to freeze and destroy cancer cells. Radiation treatment. Types of radiation treatment include: ?External beam radiation. This type aims beams of radiation from outside the body at the prostate to destroy cancerous cells. ?Brachytherapy. This type uses radioactive needles, seeds, wires, or tubes that are implanted into the prostate gland. Like external beam radiation, brachytherapy destroys cancerous cells. An advantage is that this type of radiation limits the damage to surrounding tissue and has fewer side effects. Chemotherapy. This treatment kills cancer cells or stops them from multiplying. It kills both cancer cells and normal cells. Targeted therapy. This treatment uses medicines to kill cancer cells without damaging normal cells. Hormone treatment. This treatment involves taking medicines that act on testosterone, one of the male hormones, by: ?Stopping your body from producing testosterone. ?Blocking testosterone from reaching cancer cells. Follow these instructions at home: Lifestyle Do not use any products that contain nicotine or tobacco. These products include cigarettes, chewing tobacco, and vaping devices, such as e-cigarettes. If you need help quitting, ask your health care provider. Eat a healthy diet. To do this: ?Eat foods that are high in fiber. These include beans, whole grains, and fresh fruits and vegetables. ?Limit foods that are high in fat and sugar. These include fried or sweet foods. Treatment for prostate cancer may affect sexual function. If you have a partner, continue to have intimate moments. This may include touching, holding, hugging, and caressing your partner. Get plenty of sleep. Consider joining a support group for men who have prostate cancer. Meeting with a support group may help you learn to manage the stress of having cancer. General instructions Take czit-grv-shocjxe and prescription medicines only as told by your health care provider. If you have to go to the hospital, notify your cancer specialist (oncologist). Keep all follow-up visits. This is important. Where to find more information [place] [employer]: www.cancer.org [place] [employer]: www.cancer.net [employer]: www.cancer.gov Contact a health care provider if: You have new or increasing trouble urinating. You have new or increasing blood in your urine. You have new or increasing pain in your hips, back, or chest. Get help right away if: You have weakness or numbness in your legs. You cannot control urination or your bowel movements (incontinence). You have chills or a fever. Summary The prostate is a small gland that is involved in the production of semen. It is located below a man's bladder, in front of the rectum. Prostate cancer is the abnormal growth of cells in the prostate gland. Treatment for this condition depends on the stage of the cancer, your age, personal preferences, and your overall health. Talk with your health care provider about treatment options that are recommended for you. Consider joining a support group for men who have prostate cancer. Meeting with a support group may help you learn to manage the stress of having cancer. This information is not intended to replace advice given to you by your health care provider. Make sure you discuss any questions you have with your health care provider. Document Revised: 10/14/2021 Document Reviewed: 10/14/2021 [employer] Patient Education 2022 [employer]. Follow Up Care 01/14/2023 09:47:52 With:TYREL HINES, Inocencio Casiano, URL Address: [address] [place] [address]- When: Unknown [facility] Discharge instructions 01-14-2023 Note Date & Type Note Facility 01-14-2023 Hospital Discharge instructions Patient Education 01/14/2023 09:46:44 Benign Prostatic Hyperplasia Benign Prostatic Hyperplasia Benign prostatic hyperplasia (BPH) is an enlarged prostate gland that is caused by the normal aging process. The prostate may get bigger as a man gets older. The condition is not caused by cancer. The prostate is a walnut-sized gland that is involved in the production of semen. It is located in front of the rectum and below the bladder. The bladder stores urine. The urethra carries stored urine out of the body. An enlarged prostate can press on the urethra. This can make it harder to pass urine. The buildup of urine in the bladder can cause infection. Back pressure and infection may progress to bladder damage and kidney (renal) failure. What are the causes? This condition is part of the normal aging process. However, not all men develop problems from this condition. If the prostate enlarges away from the urethra, urine flow will not be blocked. If it enlarges toward the urethra and compresses it, there will be problems passing urine. What increases the risk? This condition is more likely to develop in men older than 50 years. What are the signs or symptoms? Symptoms of this condition include: Getting up often during the night to urinate. Needing to urinate frequently during the day. Difficulty starting urine flow. Decrease in size and strength of your urine stream. Leaking (dribbling) after urinating. Inability to pass urine. This needs immediate treatment. Inability to completely empty your bladder. Pain when you pass urine. This is more common if there is also an infection. Urinary tract infection (UTI). How is this diagnosed? This condition is diagnosed based on your medical history, a physical exam, and your symptoms. Tests will also be done, such as: A post-void bladder scan. This measures any amount of urine that may remain in your bladder after you finish urinating. A digital rectal exam. In a rectal exam, your health care provider checks your prostate by putting a lubricated, gloved finger into your rectum to feel the back of your prostate gland. This exam detects the size of your gland and any abnormal lumps or growths. An exam of your urine (urinalysis). A prostate specific antigen (PSA) screening. This is a blood test used to screen for prostate cancer. An ultrasound. This test uses sound waves to electronically produce a picture of your prostate gland. Your health care provider may refer you to a specialist in kidney and prostate diseases (urologist). How is this treated? Once symptoms begin, your health care provider will monitor your condition (active surveillance or watchful waiting). Treatment for this condition will depend on the severity of your condition. Treatment may include: Observation and yearly exams. This may be the only treatment needed if your condition and symptoms are mild. Medicines to relieve your symptoms, including: ?Medicines to shrink the prostate. ?Medicines to relax the muscle of the prostate. Surgery in severe cases. Surgery may include: ?Prostatectomy. In this procedure, the prostate tissue is removed completely through an open incision or with a laparoscope or robotics. ?Transurethral resection of the prostate (TURP). In this procedure, a tool is inserted through the opening at the tip of the penis (urethra). It is used to cut away tissue of the inner core of the prostate. The pieces are removed through the same opening of the penis. This removes the blockage. ?Transurethral incision (TUIP). In this procedure, small cuts are made in the prostate. This lessens the prostate's pressure on the urethra. ?Transurethral microwave thermotherapy (TUMT). This procedure uses microwaves to create heat. The heat destroys and removes a small amount of prostate tissue. ?Transurethral needle ablation (TUNA). This procedure uses radio frequencies to destroy and remove a small amount of prostate tissue. ?Interstitial laser coagulation (ILC). This procedure uses a laser to destroy and remove a small amount of prostate tissue. ?Transurethral electrovaporization (TUVP). This procedure uses electrodes to destroy and remove a small amount of prostate tissue. ?Prostatic urethral lift. This procedure inserts an implant to push the lobes of the prostate away from the urethra. Follow these instructions at home: Take virh-unb-aivkbzy and prescription medicines only as told by your health care provider. Monitor your symptoms for any changes. Contact your health care provider with any changes. Avoid drinking large amounts of liquid before going to bed or out in public. Avoid or reduce how much caffeine or alcohol you drink. Give yourself time when you urinate. Keep all follow-up visits. This is important. Contact a health care provider if: You have unexplained back pain. Your symptoms do not get better with treatment. You develop side effects from the medicine you are taking. Your urine becomes very dark or has a bad smell. Your lower abdomen becomes distended and you have trouble passing urine. Get help right away if: You have a fever or chills. You suddenly cannot urinate. You feel light-headed or very dizzy, or you faint. There are large amounts of blood or clots in your urine. Your urinary problems become hard to manage. You develop moderate to severe low back or flank pain. The flank is the side of your body between the ribs and the hip. These symptoms may be an emergency. Get help right away. Call 911. Do not wait to see if the symptoms will go away. Do not drive yourself to the hospital. Summary Benign prostatic hyperplasia (BPH) is an enlarged prostate that is caused by the normal aging process. It is not caused by cancer. An enlarged prostate can press on the urethra. This can make it hard to pass urine. This condition is more likely to develop in men older than 50 years. Get help right away if you suddenly cannot urinate. This information is not intended to replace advice given to you by your health care provider. Make sure you discuss any questions you have with your health care provider. Document Revised: 02/03/2022 Document Reviewed: 02/03/2022 [employer] Patient Education 2022 [employer]. Follow Up Care 07/19/2022 10:30:26 With:TYREL HINES, Inocencio Casiano, URL Address: [facility] [address] , [place] [address]- [phone] When:Within 6 Month(s) Comments:JASON [facility] Discharge instructions 07-19-2022 Note Date & Type Note Facility 07-19-2022 Hospital Discharge instructions Patient Education 07/19/2022 08:22:34 Benign Prostatic Hyperplasia Benign Prostatic Hyperplasia Benign prostatic hyperplasia (BPH) is an enlarged prostate gland that is caused by the normal aging process and not by cancer. The prostate is a walnut-sized gland that is involved in the production of semen. It is located in front of the rectum and below the bladder. The bladder stores urine and the urethra is the tube that carries the urine out of the body. The prostate may get bigger as a man gets older. An enlarged prostate can press on the urethra. This can make it harder to pass urine. The build-up of urine in the bladder can cause infection. Back pressure and infection may progress to bladder damage and kidney (renal) failure. What are the causes? This condition is part of a normal aging process. However, not all men develop problems from this condition. If the prostate enlarges away from the urethra, urine flow will not be blocked. If it enlarges toward the urethra and compresses it, there will be problems passing urine. What increases the risk? This condition is more likely to develop in men over the age of 50 years. What are the signs or symptoms? Symptoms of this condition include: Getting up often during the night to urinate. Needing to urinate frequently during the day. Difficulty starting urine flow. Decrease in size and strength of your urine stream. Leaking (dribbling) after urinating. Inability to pass urine. This needs immediate treatment. Inability to completely empty your bladder. Pain when you pass urine. This is more common if there is also an infection. Urinary tract infection (UTI). How is this diagnosed? This condition is diagnosed based on your medical history, a physical exam, and your symptoms. Tests will also be done, such as: A post-void bladder scan. This measures any amount of urine that may remain in your bladder after you finish urinating. A digital rectal exam. In a rectal exam, your health care provider checks your prostate by putting a lubricated, gloved finger into your rectum to feel the back of your prostate gland. This exam detects the size of your gland and any abnormal lumps or growths. An exam of your urine (urinalysis). A prostate specific antigen (PSA) screening. This is a blood test used to screen for prostate cancer. An ultrasound. This test uses sound waves to electronically produce a picture of your prostate gland. Your health care provider may refer you to a specialist in kidney and prostate diseases (urologist). How is this treated? Once symptoms begin, your health care provider will monitor your condition (active surveillance or watchful waiting). Treatment for this condition will depend on the severity of your condition. Treatment may include: Observation and yearly exams. This may be the only treatment needed if your condition and symptoms are mild. Medicines to relieve your symptoms, including: ?Medicines to shrink the prostate. ?Medicines to relax the muscle of the prostate. Surgery in severe cases. Surgery may include: ?Prostatectomy. In this procedure, the prostate tissue is removed completely through an open incision or with a laparoscope or robotics. ?Transurethral resection of the prostate (TURP). In this procedure, a tool is inserted through the opening at the tip of the penis (urethra). It is used to cut away tissue of the inner core of the prostate. The pieces are removed through the same opening of the penis. This removes the blockage. ?Transurethral incision (TUIP). In this procedure, small cuts are made in the prostate. This lessens the prostate's pressure on the urethra. ?Transurethral microwave thermotherapy (TUMT). This procedure uses microwaves to create heat. The heat destroys and removes a small amount of prostate tissue. ?Transurethral needle ablation (TUNA). This procedure uses radio frequencies to destroy and remove a small amount of prostate tissue. ?Interstitial laser coagulation (ILC). This procedure uses a laser to destroy and remove a small amount of prostate tissue. ?Transurethral electrovaporization (TUVP). This procedure uses electrodes to destroy and remove a small amount of prostate tissue. ?Prostatic urethral lift. This procedure inserts an implant to push the lobes of the prostate away from the urethra. Follow these instructions at home: Take zrzo-tde-bfzbycw and prescription medicines only as told by your health care provider. Monitor your symptoms for any changes. Contact your health care provider with any changes. Avoid drinking large amounts of liquid before going to bed or out in public. Avoid or reduce how much caffeine or alcohol you drink. Give yourself time when you urinate. Keep all follow-up visits as told by your health care provider. This is important. Contact a health care provider if: You have unexplained back pain. Your symptoms do not get better with treatment. You develop side effects from the medicine you are taking. Your urine becomes very dark or has a bad smell. Your lower abdomen becomes distended and you have trouble passing your urine. Get help right away if: You have a fever or chills. You suddenly cannot urinate. You feel lightheaded, or very dizzy, or you faint. There are large amounts of blood or clots in the urine. Your urinary problems become hard to manage. You develop moderate to severe low back or flank pain. The flank is the side of your body between the ribs and the hip. These symptoms may represent a serious problem that is an emergency. Do not wait to see if the symptoms will go away. Get medical help right away. Call your local emergency services (911 in the [place] Do not drive yourself to the hospital. Summary Benign prostatic hyperplasia (BPH) is an enlarged prostate that is caused by the normal aging process and not by cancer. An enlarged prostate can press on the urethra. This can make it hard to pass urine. This condition is part of a normal aging process and is more likely to develop in men over the age of 50 years. Get help right away if you suddenly cannot urinate. This information is not intended to replace advice given to you by your health care provider. Make sure you discuss any questions you have with your health care provider. Document Released: 07/18/2006 Document Revised: 06/12/2019 Document Reviewed: 08/22/2017 [employer] Patient Education 2019 [employer] Follow Up Care 01/18/2022 11:22:59 With:TYREL HINES, Inocencio Casiano, RADHA Address: [facility] [address] [place] [address]- When:Within 6 Month(s) Comments:Mohsen GOMEZ [facility] Discharge instructions 01-18-2022 Note Date & Type Note Facility 01-18-2022 Hospital Discharg e instructions Patient Education 01/18/2022 11:11:52 Prostate Cancer Prostate Cancer The prostate is a walnut-sized gland that is involved in the production of semen. It is located below a man's bladder, in front of the rectum. Prostate cancer is the abnormal growth of cells in the prostate gland. What are the causes? The exact cause of this condition is not known. What increases the risk? This condition is more likely to develop in men who: Are older than age 65. Are -[place]. Are obese. Have a family history of prostate cancer. Have a family history of breast cancer. What are the signs or symptoms? Symptoms of this condition include: A need to urinate often. Weak or interrupted flow of urine. Trouble starting or stopping urination. Inability to urinate. Pain or burning during urination. Painful ejaculation. Blood in urine or semen. Persistent pain or discomfort in the lower back, lower abdomen, hips, or upper thighs. Trouble getting an erection. Trouble emptying the bladder all the way. How is this diagnosed? This condition can be diagnosed with: A digital rectal exam. For this exam, a health care provider inserts a gloved finger into the rectum to feel the prostate gland. A blood test called a prostate-specific antigen (PSA) test. An imaging test called transrectal ultrasonography. A procedure in which a sample of tissue is taken from the prostate and examined under a microscope (prostate biopsy). Once the condition is diagnosed, tests will be done to determine how far the cancer has spread. This is called staging the cancer. Staging may involve imaging tests, such as: A bone scan. A CT scan. A PET scan. An MRI. The stages of prostate cancer are as follows: Stage I. At this stage, the cancer is found in the prostate only. The cancer is not visible on imaging tests and it is usually found by accident, such as during a prostate surgery. Stage II. At this stage, the cancer is more advanced than it is in stage I, but the cancer has not spread outside the prostate. Stage III. At this stage, the cancer has spread beyond the outer layer of the prostate to nearby tissues. The cancer may be found in the seminal vesicles, which are near the bladder and the prostate. Stage IV. At this stage, the cancer has spread other parts of the body, such as the lymph nodes, bones, bladder, rectum, liver, or lungs. How is this treated? Treatment for this condition depends on several factors, including the stage of the cancer, your age, personal preferences, and your overall health. Talk with your health care provider about treatment options that are recommended for you. Common treatments include: Observation for early stage prostate cancer (active surveillance). This involves having exams, blood tests, and in some cases, more biopsies. For some men, this is the only treatment needed. Surgery. Types of surgeries include: ?Open surgery. In this surgery, a larger incision is made to remove the prostate. ?A laparoscopic prostatectomy. This is a surgery to remove the prostate and lymph nodes through several, small incisions. It is often referred to as a minimally invasive surgery. ?A robotic prostatectomy. This is a surgery to remove the prostate and lymph nodes with the help of a robotic arm that is controlled by a computer. ?Orchiectomy. This is a surgery to remove the testicles. ?Cryosurgery. This is a surgery to freeze and destroy cancer cells. Radiation treatment. Types of radiation treatment include: ?External beam radiation. This type aims beams of radiation from outside the body at the prostate to destroy cancerous cells. ?Brachytherapy. This type uses radioactive needles, seeds, wires, or tubes that are implanted into the prostate gland. Like external beam radiation, brachytherapy destroys cancerous cells. An advantage is that this type of radiation limits the damage to surrounding tissue and has fewer side effects. High-intensity, focused ultrasonography. This treatment destroys cancer cells by delivering high-energy ultrasound waves to the cancerous cells. Chemotherapy medicines. This treatment kills cancer cells or stops them from multiplying. Hormone treatment. This treatment involves taking medicines that act on one of the male hormones (testosterone): ?By stopping your body from producing testosterone. ?By blocking testosterone from reaching cancer cells. Follow these instructions at home: Take qzih-yfj-dyxqglu and prescription medicines only as told by your health care provider. Maintain a healthy diet. Get plenty of sleep. Consider joining a support group for men who have prostate cancer. Meeting with a support group may help you learn to cope with the stress of having cancer. Keep all follow-up visits as told by your health care provider. This is important. If you have to go to the hospital, notify your cancer specialist (oncologist). Treatment for prostate cancer may affect sexual function. Continue to have intimate moments with your partner. This may include touching, holding, hugging, and caressing. Contact a health care provider if: You have trouble urinating. You have blood in your urine. You have pain in your hips, back, or chest. Get help right away if: You have weakness or numbness in your legs. You cannot control urination or your bowel movements (incontinence). You have trouble breathing. You have sudden chest pain. You have chills or a fever. Summary The prostate is a walnut-sized gland that is involved in the production of semen. It is located below a man's bladder, in front of the rectum. Prostate cancer is the abnormal growth of cells in the prostate gland. Treatment for this condition depends on several factors, including the stage of the cancer, your age, personal preferences, and your overall health. Talk with your health care provider about treatment options that are recommended for you. Consider joining a support group for men who have prostate cancer. Meeting with a support group may help you learn to cope with the stress of having cancer. This information is not intended to replace advice given to you by your health care provider. Make sure you discuss any questions you have with your health care provider. Document Released: 07/18/2006 Document Revised: 06/30/2018 Document Reviewed: 03/28/2017 [employer] Patient Education 2020 [employer]. Follow Up Care 07/20/2021 10:50:48 With:TYREL HINES, Inocencio Casiano, URL Address: [facility] [address] , [place] [phone] When:07/20/2022 Comments:Lupron, PSA [facility] Evaluation + Plan note Note Date & Type Note Facility Evaluation + Plan note Future Appointments Appointment Date:07/16/2022 09:30:00 AM Scheduled Provider:Inocencio SARAH MD Location:[facility] Appointment Type:URO Office Visit Diagnostic Tests PendingPSA Total 01/18/22 [facility] [employer] Evaluation + Plan note Note Date & Type Note Facility Evaluation + Plan note Future Appointments Appointment Date:01/07/2023 08:30:00 AM Scheduled Provider:Inocencio SARAH MD Location:[facility] Appointment Type:URO Office Visit Diagnostic Tests PendingPSA Total 07/19/22 [facility] Evaluation + Plan note Note Date & Type Note Facility Evaluation + Plan note Future Appointments Appointment Date:07/18/2023 08:45:00 AM Scheduled Provider:Inocencio SARAH MD Location:[facility] Appointment Type:URO Office Visit Diagnostic Tests PendingPSA Total 01/14/23 [facility] Evaluation + Plan note Note Date & Type Note Facility Evaluation + Plan note Future Appointments Appointment Date:01/23/2024 10:15:00 AM Scheduled Provider:Inocencio SARAH MD Location:[facility] Appointment Type:URO Office Visit Diagnostic Tests PendingPSA Total 11/30/23 [facility] Hospital course Narrative Note Date & Type Note Facility Hospital course Narrative No data available for this section [facility] Progress note Note Date & Type Note Facility Progress note No data available for this section [facility] Summary Purpose Family History No Family History Records FoundNo Family History Records Found No data available for this section No Family History Records Found Advance Directives No Advanced Directives Records FoundNo Advanced Directives Records FoundNo Advanced Directives Records Found Additional Source Comments (unrecognized sect ion and content) No Status Records FoundNo Status Records FoundNo Status Records Found INFORMATION SOURCE (unrecogn ized section and content) DATE CREATED AUTHOR 01/25/2018 [facility] DATE CREATED AUTHOR AUTHOR'S ORGANIZ ATION 07/24/2022 [facility] DATE CREATED AUTHOR AUTHOR'S ORGANIZ ATION [facility] (unrecognized sect ion and content) Personnel Name: Elan Perez MD Address: [address] [place] [address] Personnel Name: Elan Perez MD Address: Address: [address] [place] [address] Personnel Name: Elan Perez MD Address: Address: [address] [place] [address] Personnel Name: Elan Perez MD Address: Address: [address] [place] [address] FOR RECORDS PERTAINING TO PATIENTS WHO ARE OR HAVE BEEN ENROLLED IN A CHEMICAL DEPENDENCY/SUBSTANCEABUSE PROGRAM, SOME INFORMATION MAY BE OMITTED. This clinical summary was aggregated from multiple sources. Caution should be exercised in using it in the provision of clinical care. This summary normalizes information from multiple sources, and as a consequence, information in this document may materially change the coding, format and clinical context of patient data. In addition, data may be omitted in some cases. CLINICAL DECISIONS SHOULD BE BASED ON THE PRIMARY CLINICAL RECORDS. [facility] [email or web address] [facility]. provides no warranty or guarantee of the accuracy or completeness of information in this document.
--- NOTE | 2024-01-06 09:58 | XR_ITS ---
The [address] [address] Patient Name: LORRAINE REYES MRN: [id number] date: 1945 Sex: M Assigned Patient Location: LAB Current Patient Location: Accession/Order Number: [id number] Exam Date: 01/06/2024 10:01 Report Date: 01/07/2024 07:29 At the request of: MANFRED CENTENO Procedure: XR abdomen 1V EXAMINATION: XR abdomen 1V HISTORY: history of Kidney stones Z87.442 COMPARISON: XR KUB 07/07/2022 FINDINGS: KIDNEY/URETER - RIGHT: No visible renal or ureteral calcifications. KIDNEY/URETER - LEFT: No visible renal or ureteral calcifications. PELVIS: No visible ureteral stones. Stable appearance of a few tiny pelvic calcifications favoring phleboliths. BOWEL: No abnormal dilation or deviation. BONES: No acute abnormality. OTHER: Negative. No abnormal gaseous collections. XR/XR abdomen 1V IMPRESSION: 1. No appreciable urinary tract calculi. Electronically authenticated by: MAYITO ROSAS Date: 01/07/2024 07:29
[2024-01-06 12:07] LABS: Prostate Specific Antigen Dx <0.13 ng/mL (<=4.00)
== END 2024-01-06 09:40 | disposition home or self-care (01) ==
LOC: LAB 09:41
PROVIDERS: PCP Family Medicine; Visit Provider Urology
DX: C61 Malignant neoplasm of prostate (principal); Z87.442 Personal history of urinary calculi
CPT/HCPCS: 36415; 74018; 84153

== ENCOUNTER 2024-07-10 10:20 | Outpatient (OUT) | payer MEDICARE, SELFPAY ==
[2024-07-10 11:23] LABS: Prostate Specific Antigen Dx <0.13 ng/mL (<=4.00)
== END 2024-07-10 10:21 | disposition home or self-care (01) ==
LOC: LAB 10:21
PROVIDERS: PCP Family Medicine; Visit Provider Urology
DX: C61 Malignant neoplasm of prostate (principal)
CPT/HCPCS: 36415; 84153

== ENCOUNTER 2024-12-28 08:45 | Outpatient (OUT) | payer MEDICARE, SELFPAY ==
--- OUTSIDE RECORDS SUMMARY | 2024-12-28 08:50 | XMS_ITS | Clinical Summary ---
Author Organization [facility] Address [address] [place], [place] [id number] Care Team Providers Care Jack Spooler Tender Name Role Phone Aries, Dewayne Powers DO Primary Care Provider Allergies Active Allergy Reactions Criticality Noted Date Comments Meperidine (Pf) Other: See Comments 04/15/2015 hypotension Promethazine Hcl Other: See Comments 04/15/2015 hypotension Medications tamsulosin ER (FLOMAX) 0.4 mg cp24 twice daily. 03/06/20 15 Active multivitamin tablet Take 1 tablet by mouth once daily. Active alendronate (FOSAMAX) 70 mg tablet Take 70 mg by mouth once each week. Active leuprolide, 6 month, (LUPRON) sykt IM syringe kit Inject 45 mg intramuscularly one time only. Active nabumetone (RELAFEN) 750 mg tablet Take 750 mg by mouth twice daily. 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 Family History Medical History Relation Comments Cancer Mother Lung Relation Status Comments Mother Social History Tobacco Use Types Packs/Day Years Used Date Smoking Tobacco: Never Alcohol Use Standard Drinks/Week Comments Not Asked 0 (1 standard drink = 0.6 oz pur e alcohol) Sex and Gender Information Value Date Recorded Sex Assigned at Not on file Legal Sex Male 11:13 AM EDT Gender Identity Not on file Sexual Orientation Not on file Last Filed Vital Signs Vital Sign Reading Time Taken Comments Blood Pressure 170/84 04/06/2017 10:51 AM EDT Pulse - - Temperature - - Respiratory Rate - - Oxygen Saturation - - Inhaled Oxygen Concentration - - Weight 79 kg (174 lb 3.2 oz) 04/06/2017 10:51 AM EDT Height 174 cm (5' 8.5 ) 03/19/2015 10:43 AM EDT Body Mass Index 26.1 03/19/2015 10:43 AM EDT Plan of Treatment Health Maintenance Due Date Last Done Comments Anxiety Screening 1962 Depression Screening 1962 DTaP,Tdap,Td Vaccine (1 - Tdap) 1963 Diabetes Screening 1989 Pneumococcal Vaccine: 50+ (1 of 1 - PCV) 1994 Shingrix Vaccine (1 of 2) 1994 RSV Vaccine (1 - 1-dose 75+ series) 2019 Covid-19 Vaccine ( - 2023- season) 2024 Advance Directive Discussion 08/01/2024 Influenza Vaccine (Season Ended) 2025 Insurance [employer] MEDICARE Care Teams Jack Spooler Tender Relationship Specialty Start Date End Date Dewayne Chris DO PCP - General Family Medicine 03/19/15
--- OUTSIDE RECORDS SUMMARY | 2024-12-28 08:50 | XMS_ITS | Clinical Summary ---
Author Organization [facility] Address [address] [place] [address] Care Team Providers Care Dinkey Operator Name Role Phone Unavailable Primary Care Provider Unavailabl e Social History Tobacco Use Types Packs/Day Years Used Date Smoking Tobacco: Never Assessed Sex and Gender Information Value Date Recorded Sex Assigned at Not on file Legal Sex Male 7:26 PM EDT Gender Identity Not on file Sexual Orientation Not on file Last Filed Vital Signs Vital Sign Reading Time Taken Comments Blood Pressure - - Pulse - - Temperature - - Respiratory Rate - - Oxygen Saturation - - Inhaled Oxygen Concentration - - Weight 77.1 kg (170 lb) 09/15/2018 12:00 PM EST Height 175.3 cm (5' 9 ) 09/15/2018 12:00 PM EST Body Mass Index 25.1 09/15/2018 12:00 PM EST Plan of Treatment Not on file
--- OUTSIDE RECORDS SUMMARY | 2024-12-28 09:08 | XMS_ITS | CCD ---
Author Organization [facility] Care Team Providers Care Research Biostatistician Name Role Phone ENGRamonita NICE MICKI Unavailable Unavailable ENGELER G MICKI Unavailable Unavailable ENGELER G MICKI Unavailable Unavailable ENGELER, G MICKI Unavailable Unavailable Elan Perez Primary Care Physician [phone] TYREL, DR SHEARER Attending Unavailable CHRISTIANNE, DR GRAY Primary Care Unavailable TYREL, DR SHEARER Admitting Unavailable TYREL, DR SEHARER Consulting Unavailable MAISHA, DR KATHY Pastrana Consulting Unavailable TYREL, DR SHEARER Attending Unavailable CHRISTIANNE, DR GRAY Primary Care Unavailable TYREL, DR SHEARER Admitting Unavailable TYREL, DR SHEARER Consulting Unavailable Inocencio SARAH Attending Unavailable TYREL, Inocencio Casiano Attending Unavailable SARAH, Inocencio Casiano Attending Unavailable Allergies Allergy Classification Reported Allergen(s) Allergy Type Date of Onset Reaction(s) Facility (1 source) meperidine; Translations: [MEPERIDINE (PF)] Drug Allergy 04-15-2015 [facility] Repository (1 source) promethazine; Translations: [PROMETHAZINE HCL] Drug Allergy 04-15-2015 [facility] Repository (7 sources) Meperidine; Translations: [meperidine] Drug Allergy 04-14-2015 [facility] (7 sources) Promethazine; Translations: [promethazine] Drug Allergy 04-14-2015 [facility] Medications Current Medications Medication Drug Class(es) Dates Sig (Normalized) Sig (Original) Acidophilus Probiotic Blend (6 sources) Start: 03-09-2019 take 1 capsule by mouth once daily Acidophilus Probiotic Blend 1 cap(s), Oral, Daily Start Date: 03/09/19 Status: Ordered alendronic acid 70 mg oral tablet (7 sources) Bisphosphonate Start: 04-16-2024 Alendronate Active MG PO April 16, 2024 12:00am Start: 04-06-2024 take 1 tablet by shawna th every week Fosamax 70 mg Tab 70 mg = 1 tab(s), Oral, qWeek, # 12 tab(s), Refills(s) 3, [id number], 176, cm, 01/23/24 10:35:00 EDT, Height/Length Dosing, 75, kg, 01/23/24 10:35:00 EDT, Weight Dosing Start Date: 04/06/24 Status: Ordered Start: 05-06-2023 take 1 tablet by shawna every week Fosamax 70 mg Tab 70 mg = 1 tab(s), Oral, qWeek, # 12 tab(s), Refills(s) 3, [id number], 176, cm, 01/14/23 9:02:00 EDT, Height/Length Dosing, 77.9, kg, 01/14/23 9:02:00 EDT, Weight Dosing Start Date: 05/06/23 Status: Ordered Start: 05-13-2022 take 1 tablet by shawna every week Fosamax 70 mg oral tablet 70 mg = 1 tab(s), Oral, qWeek, # 13 tab(s), Refills(s) 3, [id number], 175, cm, 01/18/22 10:47:00 EDT, Height/Length Dosing, 80.4, kg, 01/18/22 10:47:00 EDT, Weight Dosing Start Date: 05/13/22 Status: Ordered Start: 06-08-2021 take 1 tablet by shawna every week Fosamax 70 mg oral tablet 70 mg = 1 tab(s), Oral, qWeek, # 12 tab(s), Refills(s) 3, [id number], 175, cm, 01/09/21 8:30:00 EDT, Height/Length Dosing, 80, kg, 01/09/21 8:30:00 EDT, Weight Dosing Start Date: 06/08/21 Status: Ordered aspirin 81 mg delayed release oral tablet (1 source) Platelet Aggregation Inhibitor, Nonsteroidal Anti-inflammatory Drug Start: 04-16-2024 Aspirin (Adult Low Dose Aspirin) 81 mg tablet,delayed release (DR/EC) Active 81 MG PO Daily April 16, 2024 12:00am bicalutamide 50 mg oral tablet (7 sources) Androgen Receptor Inhibitor Start: 04-16-2024 take 50 mg by mouth once daily Bicalutamide Active 50 MG PO Daily April 16, 2024 12:00am Start: 06-06-2023 take 1 tablet by shawna th every twenty-four hours Casodex 50 mg Tab 50 mg = 1 tab(s), Oral, q24hr, # 90 tab(s), Refills(s) 3, [facility]: [id number], 176, cm, 01/14/23 9:02:00 EDT, Height/Length Dosing, 77.9, kg, 01/14/23 9:02:00 EDT, Weight Dosing Start Date: 06/06/23 Status: Ordered Start: 05-28-2022 take 1 tablet by shawna th every twenty-four hours Casodex 50 mg Tab 50 mg = 1 tab(s), Oral, q24hr, # 90 tab(s), Refills(s) 3, Pharmacy: [facility]/pharmacy #[id number], 175, cm, 01/18/22 10:47:00 EDT, Height/Length Dosing, 80.4, kg, 01/18/22 10:47:00 EDT, Weight Dosing Start Date: 05/28/22 Status: Ordered Start: 05-26-2021 take 1 tablet by shawna every twenty-four hours Casodex 50 mg Tab 50 mg = 1 tab(s), Oral, q24hr, # 90 tab(s), Refills(s) 3, Pharmacy: [facility]/pharmacy #[id number], 175, cm, 01/09/21 8:30:00 EDT, Height/Length Dosing, 80, kg, 01/09/21 8:30:00 EDT, Weight Dosing Start Date: 05/26/21 Status: Ordered Fish Oils (6 sources) Start: 03-09-2019 Fish Oil 1,200 mg, Oral Start Date: 03/09/19 Status: Ordered 1.5 ml leuprolide acetate 30 mg/ml prefilled syringe (6 sources) Gonadotropin Releasing Hormone Receptor Agonist Start: 03-09-2019 Lupron Depot 45 mg/6 months intramuscular injection, extended release IntraMuscular, q6mo Start Date: 03/09/19 Status: Ordered Lidocaine (1 source) Antiarrhythmic, Amide Local Anesthetic Start: 04-16-2024 Lidocaine Active 1 APPLIC TOPICAL Twice daily 30 7 April 16, 2024 12:00am Multi Vitamins oral tablet (6 sources) Start: 03-09-2019 take 1 tablet by mouth once daily Multi Vitamins oral tablet 1 tab(s), Oral, Daily Start Date: 03/09/19 Status: Ordered Super B Complex (6 sources) Start: 03-09-2019 take 1 tablet by mouth once daily Super B Complex 1 tab(s), Oral, Daily Start Date: 03/09/19 Status: Ordered tamsulosin hydrochloride 0.4 mg oral capsule (7 sources) alpha-Adrenergic Jarett Start: 04-16-2024 Tamsulosin Active MG PO April 16, 2024 12:00am Start: 01-16-2024 take 1 capsule by [facility] twice daily Flomax 0.4 mg Cap 0.4 mg = 1 cap(s), Oral, BID, # 180 cap(s), Refills(s) 3, Pharmacy: [id number], 176, cm, 07/29/23 11:06:00 EST, Height/Length Dosing, 77.9, kg, 07/29/23 11:06:00 EST, Weight Dosing Start Date: 01/16/24 Status: Ordered Start: 01-14-2023 take 1 capsule by [facility] twice daily Flomax 0.4 mg Cap 0.4 mg = 1 cap(s), Oral, BID, # 180 cap(s), Refills(s) 3, Pharmacy: [facility]acy #[id number], 176, cm, 01/14/23 9:02:00 EDT, Height/Length Dosing, 77.9, kg, 01/14/23 9:02:00 EDT, Weight Dosing Start Date: 01/14/23 Status: Ordered Start: 01-18-2022 take 1 capsule by [facility] twice daily Flomax 0.4 mg Cap 0.4 mg = 1 cap(s), Oral, BID, # 180 cap(s), Refills(s) 3, Pharmacy: [id number], 175, cm, 01/18/22 10:47:00 EDT, Height/Length Dosing, 80.4, kg, 01/18/22 10:47:00 EDT, Weight Dosing Start Date: 01/18/22 Status: Ordered valACYclovir 1000 mg oral tablet (1 source) Herpesvirus Nucleoside Analog DNA Polymerase Inhibitor, Herpes Simplex Virus Nucleoside Analog DNA Polymerase Inhibitor, Herpes Zoster Virus Nucleoside Analog DNA Polymerase Inhibitor Start: 04-16-2024 take 1000 mg by mouth three times daily Valacyclovir Active 1000 MG PO Three times daily 18 02April 16, 2024 12:00am Problems Problem Classification Problem Date Documented Da te Episodic/Chronic Calculus of urinary tract (20 sources) History of calculus of kidney; Translations: [Personal history of urinary calculi] Onset: 01-18-2022 Episodic Cancer of prostate (17 sources) Malignant neoplasm of prostate; Translations: [Carcinoma of prostate] Onset: 03-30-2017 Chronic Cancer of prostate (6 sources) History of malignant neoplasm of prostate 05-18-2019 Episodic Genitourinary symptoms and ill-defined conditions (20 sources) Dysuria; Translations: [Incomplete emptying of bladder] 05-18-2019 Episodic Hyperplasia of prostate (14 sources) Benign prostatic hypertrophy with outflow obstruction; Translations: [Benign prostatic hyperplasia with lower urinary tract symptoms] Onset: 01-18-2022 Chronic Other diseases of bladder and urethra (6 sources) Spasm of bladder 05-18-2019 Chronic Other diseases of kidney and ureters (1 source) Urinary tract obstruction; Translations: [Other obstructive and reflux uropathy] Onset: 01-12-2023 Episodic Other screening for suspected conditions (not mental disorders or infectious disease) (6 sources) Raised prostate specific antigen 11-02-2019 Episodic Residual codes; unclassified (1 source) Body mass index 20-24 - normal; Translations: [Body mass index (BMI) 24.0-24.9, adult] Onset: 01-23-2024 Episodic Secondary malignancies (6 sources) Secondary malignant neoplasm of bone 11-02-2019 Chronic Unclassified (1 source) Unknown / UNK(Unknown) Onset: 03-30-2017 Viral infection (2 sources) Herpes zoster; Translations: [Zoster without complications] 04-16-2024 Episodic Results Test Name Value Interpretation Reference Range Facility Ambulatory Visit Summaryon 1 09-16-2023 Ambulatory Visit Summary Ambulatory Visit Summary LORRAINE REYES :1945 Visit Date:07/16/2024 Ambulatory Visit Instructions Your Diagnosis Prostate cancer BPH with urinary obstruction History of kidney stones Your Care Team Attending Physician - Inocencio SARAH MD Primary Care Physician - Elan Perez MD This Is Your Medications List alendronate (Fosamax 70 mg Tab) bicalutamide (Casodex 50 mg Tab) tamsulosin (Flomax 0.4 mg Cap) Contact prescribing physician if questions or concerns lactobacillus acidophilus (Acidophilus Probiotic Blend) leuprolide (Lupron Depot 45 mg/6 months intramuscular injection, extended release) multivitamin (Multi Vitamins oral tablet) multivitamin (Super B Complex) omega-3 polyunsaturated fatty acids (Fish Oil) Procedures Performed Cystoscopic insertion of ureteric stent (05/17/2019), History of external beam radiation therapy (06/2015), Transrectal biopsy of prostate using ultrasound (US) guidance (02/04/2015), Colonoscopy (01/2015). Discharge Vitals Temperature (Temporal Artery) 37 ???C Heart Rate (Peripheral) 78 Respiratory Rate 16 Blood Pressure 134/83 Height 176 cm Height 69 in Weight 80.3 kg Weight 177.031 lb BMI 25.92 What to do next Scheduled Follow-Up Appointments Tuesday 8:45 AM EDT With: Inocencio SARAH MD Where: [facility] [address] [address]- You Need to Schedule the Following Appointments Follow Up with Inocencio SARAH MD, URL When: Where: [facility] [address], [place] [address]- Medications What How Much When Instructions Unchanged alendronate (Fosamax 70 mg Tab) 1 Tablets By Mouth Every week Unchanged bicalutamide (Casodex 50 mg Tab) 1 Tablets By Mouth Every 24 hours Unchanged tamsulosin (Flomax 0.4 mg Cap) 1 Capsules By Mouth 2 times a day Unchanged lactobacillus acidophilus (Acidophilus Probiotic Blend) 1 Capsules By Mouth Every day Contact prescribing physician if questions or concerns Unchanged leuprolide (Lupron Depot 45 mg/ 6 months intramuscular injection, extended release) Intramuscular Every 6 months Contact prescribing physician if questions or concerns Unchanged multivitamin (Multi Vitamins oral tablet) 1 Tablets By Mouth Every day Contact prescribing physician if questions or concerns Unchanged multivitamin (Super B Complex) 1 Tablets By Mouth Every day Contact prescribing physician if questions or concerns Unchanged omega-3 polyunsaturated fatty acids (Fish Oil) 1,200 Milligram By Mouth Contact prescribing physician if questions or concerns Medications and Immunizations Administered Given Lupron Depot 45 mg/6 months intramuscular injection, extended release, 45 mg, IntraMuscular. For: Prostate cancer Allergies meperidine (AOF) promethazine (AOF) Problems Ongoing - Any problem that you are currently receiving treatment for. Bladder spasms BPH with urinary obstruction Dysuria History of kidney stones History of prostate cancer Incomplete emptying of bladder Kidney stones Metastasis to bone Microhematuria Nocturia Prostate cancer Ureteral stone Weak urinary stream Historical - Any problem that you are no longer receiving treatment for. Elevated PSA Patient Survey You may receive a survey via text or e-mail asking about your office visit. Please share your experience with us by completing your survey. We appreciate your feedback and thank you for choosing us for your care. Education Materials Hormone Suppression Therapy for Prostate Cancer Hormone suppression therapy is a treatment for prostate cancer that can help slow the growth of cancer cells in the prostate gland. It is also called androgen deprivation therapy (ADT) or androgen suppression therapy. Hormone suppression therapy targets male sex hormones (androgens) in the body that help cancer cells grow. Hormone suppression therapy alone will not cure prostate cancer, but it can slow the growth of cancer cells and may shrink tumors over time. Your health care provider can help you find the best treatment that fits your lifestyle. Hormone suppression therapy may be used in the following cases: ??? When prostate cancer has spread too far to other places in the body and cannot be cured by surgery or radiation. ??? When a person has health problems that prevent the use of surgery or radiation. ??? Before radiation to help shrink the size of the cancer and make the radiation treatment more effective. ??? If the prostate cancer remains or comes back following treatment with surgery or radiation. What are the types of hormone suppression therapy? Orchiectomy Orchiectomy, also called surgical castration, is a surgery to remove one or both testicles. The testicles make the two main androgens???testosterone and dihydrotestosterone (DHT). This surgery (more content not included)... [facility] Urology Office/Clinic Noteon 07-16-2024 Urology Office/Clinic Note Urology Office/Clinic Note Chief Complaint prostate cancer HPI Staff 78yr old male pt here for 6mo f/u with PSA and Lupron inj. Last Lupron 45mgIM given 01/23/24. S/p EBRT 06/2015 Previous Dx: prostate cancer, BPH w/ urinary obstruction, history of kidney stones *Casodex 50mg qd, Fosamax 70mg 1x/wk, tamsulosin 0.4mg bid PSA: 07/06/21 - 0.05 01/11/22 - 0.05 07/07/22 - 0.13 01/05/23 - <0.13 07/20/23 - <0.13 01/06/24 - <0.13 07/10/24 - <0.13 Dysuria: denies Incomplete bladder emptying: denies Hematuria: denies Frequency: denies Urgency: denies Nocturia: 1x Stream: good steady Leaking: denies Post void dripping: denies Wearing pads/ Depends: denies Urge incontinence: denies Stress incontinence: denies Incontinence without Sensory Awareness: denies Abdominal pain: denies Flank pain: denies Sexual complaints: denies History of Present Illness Tests reviewed: UA, PSA I have reviewed the previous health record information and history for this patient from Dr. Sarah. I have reviewed and verified the staff HPI to be accurate for this encounter. Review of Systems PHQ Score Initial [...] See HPI. Physical Exam Vitals & Measurements T: 37 ???C(Temporal Artery) HR: 78(Peripheral) RR: 16 BP: 134/83 HT: 69 in HT: 176 cm WT: 80.3 kg WT: 177.031 lb BMI: 25.92 General Appearance: alert, no distress, well nourished, well developed male. Assessment/Plan 1. Prostate cancer (C61: Malignant neoplasm of prostate) PSA: 07/06/21 - 0.05 01/11/22 - 0.05 07/07/22 - 0.13 01/05/23 - <0.13 07/20/23 - <0.13 01/06/24 - <0.13 07/10/24 - <0.13 Original pathology showed [place]olia 9 (4+5) in multiple cores. PSA prior to bx was 62. EBRT 06/2015. Taking Casodex 50mg QD and Fosamax 70mg 1x/wk. Also taking Ca & Vit D. Prior Lupron 01/23/24. Taking Casodex 50 mg q24hr and Fosamax 70 mg qWK. PSA remains stable and undetectable, well controlled with ADT. Will cont to monitor. Lupron 45 mgIM injection given today with no complications. Right glute. Pt denies side effects at this time. Follow up 6 mos with Lupron and PSA or sooner if needed. Pt understands and agrees with plan. 2. BPH with urinary obstruction (N40.1: Benign prostatic hyperplasia with lower urinary tract symptoms) UA neg. Taking Tamsulosin 0.4 mg bid. Void well, no complaints. 3. History of kidney stones (Z87.442: Personal history of urinary calculi) KUB 12/30/20 - neg. KUB 07/07/22 [facility] - neg. KUB 01/06/24 [facility] - neg. Follow-up With When Contact Information TYREL HINES, Inocencio Casiano, URL [facility] [address], [place] [address]- Additional Instructions: 6 mos with Lupron and PSA Patient Education Hormone Suppression Therapy for Prostate Cancer Chantal Morse, personally scribed for Dr. Sarah on 07/16/2024 09:37:21. . Documentation recorded by the scribeChantal, accurately reflects the services(s) I performed and decisions made by me. Authenticated by Dr. Sarah on 07/16/2024 09:39:00. Problem List/Past Medical History Ongoing Bladder spasms [...] (less than 100 in lifetime) Tobacco Use:. Household tobacco concerns: No. Yes, 07/16/2024 Family History Acute myocard (more content not included)... [facility] Comment on above: Result Comment: Elec tronically Signed By: Inocencio SARAH MD\.br\Date and Time Signed: 07/16/24 09:39 EST\.br\Electronically Co-Signed By: Chantal Boykin\.br\Date and Time Co-Signed: 07/16/24 09:37 EST Ambulatory Visit Summaryon 0 01-23-2024 Ambulatory Visit Summary LORRAINE REYES :1945 Visit Date:01/23/2024 Ambulatory Visit Instructions Your Diagnosis Prostate cancer BPH with urinary obstruction History of kidney stones Your Care Team Attending Physician - Inocencio SARAH MD Primary Care Physician - Elan Peerz MD This Is Your Medications List alendronate (Fosamax 70 mg Tab) bicalutamide (Casodex 50 mg Tab) tamsulosin (Flomax 0.4 mg Cap) Contact prescribing physician if questions or concerns lactobacillus acidophilus (Acidophilus Probiotic Blend) leuprolide (Lupron Depot 45 mg/6 months intramuscular injection, extended release) multivitamin (Multi Vitamins oral tablet) multivitamin (Super B Complex) omega-3 polyunsaturated fatty acids (Fish Oil) Procedures Performed Cystoscopic insertion of ureteric stent (05/17/2019), History of external beam radiation therapy (06/2015), Transrectal biopsy of prostate using ultrasound (US) guidance (02/04/2015), Colonoscopy (01/2015). Discharge Vitals Height 176 cm Height 69 in Weight 75 kg Weight 165 lb BMI 24.21 What to do next Scheduled Follow-Up Appointments Tuesday 8:45 AM EST With: TYREL HINES, Inocencio Casiano Where: [facility] Patient Educationon 01-23-20 Patient Education Oncology Hormone Suppression Therapy for Prostate Cancer Hormone suppression therapy is a treatment for prostate cancer that can help slow the growth of cancer cells in the prostate gland. It is also called androgen deprivation therapy (ADT) or androgen suppression therapy. Hormone suppression therapy targets male sex hormones (androgens) in the body that help cancer cells grow. Hormone suppression therapy alone will not cure prostate cancer, but it can slow the growth of cancer cells and may shrink tumors over time. Your health care provider can help you find the best treatment that fits your lifestyle. Hormone suppression therapy may be used in the following cases: ? When prostate cancer has spread too far to other places in the body and cannot be cured by surgery or radiation. ? When a person has health problems that prevent the use of surgery or radiation. ? Before radiation to help shrink the size of the cancer and make the radiation treatment more effective. ? If the prostate cancer remains or comes back following treatment with surgery or radiation. What are the types of hormone suppression therapy? Orchiectomy Orchiectomy, also called surgical castration, is a surgery to remove one or both testicles. The testicles make the two main androgens?testosterone and dihydrotestosterone (DHT). This surgery reduces the levels of testosterone in the blood, leading to decreased androgen production. Medicine therapy Medicine therapy, also called medical or chemical castration, involves taking medicines to keep your body from making or using androgens. Medicines can do this in one of three ways: 1. Reducing androgen production by the testicles. ? Luteinizing hormone-releasing hormone (LHRH) agonists. These medicines are injected or implanted under your skin to lower the amount of androgens that your testicles make. Depending on the medicine, they can be given monthly or up to every 3 to 6 months. If you take these medicines, you may also be prescribed other medicines to help with side effects. ? LHRH antagonists. These medicines also work to lower the amount of androgens made in the testicles, but they work faster than LHRH agonist medicines and have less severe side effects. They are given as a monthly injection under the skin, and they are used when prostate cancer is in an advanced stage. ? Estrogens. These medicines are female hormones that help to reduce androgen production by the testicles. Estrogens are not used as commonly as other types of hormone suppression therapy due to their side effects. However, they may be used if other treatments do not work. 2. Blocking androgen attachment throughout the body. ? Anti-androgen medicines, also called androgen receptor antagonists, block areas on the body where androgens attach. These are pills that are usually used in combination with other types of hormone suppression therapy, like orchiectomy and other medicines. 3. Blocking androgen production throughout the body. ? Androgen synthesis inhibitor medicines. These medicines help to stop other areas of the body from making androgens. They are taken as pills. They may be used if the prostate cancer is advanced and has not gotten better with surgery or other medicines. A steroid medicine may be given with this type of medicine to help with side effects. What are the risks? Hormone suppression therapy may cause side effects, including: ? Hot flashes. ? Diarrhea and nausea. ? Itching. ? Sexual side effects, such as: ? Decrease or lack of sexual desire. ? Decrease in size of the penis or testicles. ? Inability to get an erection (erectile dysfunction, or impotence). ? Breast tenderness or increase in breast size. ? Fatigue. ? Weight gain. ? Anemia. ? Thinning of the bones (osteoporosis) and loss of muscle mass. ? Depression, mood swings, and trouble with thinking or focusing. Hormone suppression therapy may also increase your risk of high blood pressure, increased cholesterol levels, stroke, heart attack, or diabetes. What are the benefits? One of the main benefits of hormone suppression therapy is having additional treatment options. You may have only one type of treatment, or two or more types at the same time. Treatments may be combined to: ? Help with side effects. ? Treat advanced cancer. Where to find more information ? [place] [employer]: www.cancer.org ? [employer] [place]: www.cancer.gov Contact a health care provider if: ? You have pain or side effects that do not get better with treatment. ? You have trouble urinating. ? You have new side effects that do not go away. Get help right away if: ? You have severe chest pain. ? You have trouble breathing. ? You have an irregular heartbeat. ? You have numbness or paralysis in the lower half of your body. ? You are confused. ? You have trouble talking or understanding speech. These symptoms may be an emergenc (more content not included)... [facility] Urology Office/Clinic Noteon 01-23-2024 Urology Office/Clinic Note Chief Complaint 6m PSA & LUPRON HPI Staff 6 mos with PSA and Lupron injection. (Auth has been obtained & in chart) Previous Dx: prostate ca, BPH with obstruction, hx of kidney stones. S/p EBRT 06/2015. *Tamsulosin 0.4 mg bid, Casodex 50 mg qd, and Fosamax 1x/wk. Last Lupron given 07/29/23. PSA: 01/06/24 - <0.13. KUB 01/06/24 [facility]. Denies all urinary SX. Did have some twinges about 1m ago. Came to our office to request KUB order. Denies current twinges . History of Present Illness Tests reviewed: reviewed UA, PSA, KUB I have reviewed the previous health record information and history for this patient from Dr. Sarah. I have reviewed and verified the staff HPI to be accurate for this encounter. Review of Systems PHQ Score Initial [...] See HPI. Physical Exam Vitals & Measurements HT: 69 in HT: 176 cm WT: 75 kg WT: 165 lb BMI: 24.21 General Appearance: alert, no distress, well nourished, well developed male. Assessment/Plan 1. Prostate cancer (C61: Malignant neoplasm of prostate) PSA: 07/06/21 - 0.05 01/11/22 - 0.05 07/07/22 - 0.13 01/05/23 - <0.13 07/20/23 - <0.13 01/06/24 - <0.13 Original pathology showed Bart 9 (4+5) in multiple cores. PSA prior to bx was 62. EBRT 06/2015. Taking Casodex 50mg QD and Fosamax 70mg 1x/wk. Also taking Ca & Vit D. Last Lupron 07/29/23. PSA remains stable and undetectable. Will cont to monitor. Lupron 45 mgIM injection given today with no complications. Left glute. Pt. denies side effects at this time. -PSA and Lupron in 6 mos -Cont Casodex and Fosamax wo changes. Pt to call for refills. 2. BPH with urinary obstruction (N40.1: Benign prostatic hyperplasia with lower urinary tract symptoms) UA today negative for blood and infection. Taking Tamsulosin 0.4mg bid. No issues with urination. -Cont Tamsulosin wo changes. Pt to call for refills. 3. History of kidney stones (Z87.442: Personal history of urinary calculi) KUB 12/30/20 - neg. KUB 07/07/22 [facility] - neg. KUB 01/06/24 [facility] - neg for stones. Reviewed imaging results. Has not had any appreciable stones in past 3 years. States he occasional gets twinges, alternates between left and right side. Educated pt this likely could be related to constipation vs urological origin. Discussed stopping stone monitoring given stability. Pt agrees. Follow-up With When Contact Information TYREL HINES, Inocencio Casiano, URL [facility] [address], [place] [address]- [phone] Additional Instructions: 6 mos w/ PSA and Lupron Patient Education Hormone Suppression Therapy for Prostate Cancer I, Janessa Gomez, personally scribed for Dr. Sarah on 01/23/2024 11:19:57. . Documentation recorded by the scribe, Janessa Gomez, accurately reflects the services(s) I performed and decisions made by me. Authenticated by Dr. Sarah on 01/23/2024 11:23:54. Problem List/Past Medical History Ongoing Bladder spasms [...] Tobacco Use:. Household tobacco concerns: No. Yes, 01/23/2024 Family History Acute myocardial infarction: Father. Primary malignant neoplasm of lung: Mother. Immunizations Vaccine Date Status Comments SARS-CoV-2 (COVID-1 (more content not included)... [facility] Comment on above: Result Comment: Elec tronically Signed By: Inocencio SARAH MD\.br\Date and Time Signed: 01/23/24 11:23 EDT\.br\Electronically Co-Signed By: Janessa Gomezbr\Date and Time Co-Signed: 01/23/24 11:20 EDT Lab Reportson 01-09-2024 Lab Reports [id number]#1.00TIFF [facility] RAD - MISCon 01-09-2024 RAD - MISC [id number]#1.00TIFF [facility] Insurance Correspondenceon 0 01-04-2024 Insurance Correspondence [id number]#1.00TIFF [facility] XR KUB 1 VIEWon 07-07-2022 XR KUB 1 VIEW EXAMINATION: XR KUB 1 VIEW HISTORY: Primary malignant neoplasm of prostate COMPARISON: No relevant comparison available. FINDINGS: BOWEL GAS PATTERN: No abnormal dilation or deviation. CALCIFICATIONS: None significant. OTHER: Moderate bilateral hip osteoarthropathy. Degenerative spondylosis of the spine IMPRESSION: No acute abnormality Electronically authenticated by: KATHY FERRERA Date: 2022-07-07 11:50 [facility] Visit (RADTSA) -------LORRAINE REYES ([id number]) 1945 MDate Time Provider Department04/06/17 11:00 AM Ramonita LEON During your visit today, we recorded the following information about you: Blood pressure Weight 170/84 79 kgCindy Bear RN, RN 04/06/2017 11:05 AM SignedAUA BERTRAM Robledo MD 04/08/2017 2:42 PM SignedRadiation Oncology - Follow Up NotePATIENT NAME: Lorraine Thomas : Prostate cancer, adenocarcinomaGleason score 9(4,5)Pretreatment PSA: PSA 62.1With solitary pelvic metastatic focus Stage: [id number] Course SummaryTreatment Technique: IMRT;RA Imaging: kv cone beam CT image guidanceDate Start: 04/15/2015 Date Complete: 06/16/2015Treatment Area Number [employer] Number of Fractions (Elapsed Days) DosePelvis including left ischium 2 6MV 28(37) 5040cGyProstate 2 6MV 16(24) 2880cGyTotal Prostate 44(61) 7920cGyINTERVAL HISTORY: The patient is in today for a follow-up. Overall doingwell. Denies any new problems.PSA HISTORY:PSA (ng/mL)Date Value03/30/2017 ANDlt;0.0301 ANDlt;0.0306 ANDlt;0.0312/ 0.08 ALLERGIES:ALL ERGIESAllergen Reactions- Demerol [Meperidine* Other: [...] kg (174 lb 3.2 oz) BMI 26.1 kg/x1Tqudbjz Appearance: Well appearing, alert, in no acute [...] one year for further post radiationfollow-up.Signed by: Connie Esposito Provider: Ramonita LEON [[id number]]Allergies As of Date: 04/06/2017 Noted Allergy ReactionDEMEROL (MEPERIDINE (PF)) 04/15/2015 14 - Other: See Comments Comments: hypotensionPHENERGAN (PROMETHAZINE HCL) 04/15/2015 14 - Other: See Comments Comments: hypotensionDate Reviewed: 04/06/2017Reviewed by: Cindy Bear RN - Fully AssessedReason for Visit: Prostate Cancer [590]Primary Visit Diagnosis:Malignant neoplasm of prostate (HCC) [C61]Order(s):PSA/PROSTSPEC AG DIAG [SQPSA] Order #: [id number] FUTUREPrescriptions as of 04/06/2017 Sig: NABUMETONE 750 [...] RN TueApr 06, 2017 10:53 AM Status: SignedDIMITRI Bear RNDisposition: Return in about 1 year (around 04/06/2018).Follow-up and Disposition History RecordedEncounter Number: [id number] Status:Closed by Ramonita LEON MD on 04/08/17 [facility] PROGRESSon 04-06-2017 PROGRESS HNO ID: [id number] thor: Ramonita Romeroervice: (none)Author Type: PhysicianType: Progress NotesFiled: 04/08/2017 2:42 PMNote Text:Radiation Oncology - Follow Up NotePATIENT NAME: Lorraine Thomas : Prostate cancer, adenocarcinomaGleason score 9(4,5)Pretreatment PSA: PSA 62.1With solitary pelvic metastatic focus Stage: [id number] Course SummaryTreatment Technique: IMRT;RA Imaging: kv cone beam CT image guidanceDate Start: 04/15/2015 Date Complete: 06/16/2015Treatment Area Number [employer] Number of Fractions (Elapsed Days)DosePelvis including left ischium 2 6MV 28(37) 5040cGyProstate 2 6MV 16(24) 2880cGyTotal Prostate 44(61) 7920cGyINTERVAL HISTORY: The patient is in today for a follow-up. Overall doingwell. Denies any new problems.PSA HISTORY:PSA (ng/mL)Date Value03/30/2017 <0.0301 <0.0306 <0.0312/ 0.08 ALLERGIES:ALL ERGIESAllergen Reactions- Demerol [...] kg (174 lb 3.2 oz) BMI 26.1 kg/i9Eyewpwy Appearance: Well appearing, alert, in no acute [...] postradiation follow-up.Signed by: Ramonita Leon MD Normal [facility] PSA, Diagnosticon 03-30-2017 PSA, Diagnostic <0.03 Normal 0.00-2.59 [facility] Comment on above: Result Comment: Marya l PSA test methodology used is the Electrochemiluminescence [...] Gio Marshall M.D., Janice Diaz, M.P.H., Sherlyn Van, ScKeri. Effect of Verification Bias on Screening for Prostate Cancer by Measurement of Prostatic Specific Antigen. N Engl J Med 2003,349:335-42. Performed By: #### P ####[place] [id number] [place] [id number] Vital Signs Date Time Vital Sign Value Performing Clinician Nicolas torres 07-16-2024 08:48-0500 Blood Pressure Location Incoencio SARAH [facility] 07-16-2024 08:48-0500 Body temperature 98.6 [degF] Inocencio SARAH [facility] 07-16-2024 08:48-0500 Diastolic blood pressure 83 mm[Hg] Inocencio SARAH [facility] 07-16-2024 08:48-0500 Heart rate 78 /min Inocencio SARAH [facility] 07-16-2024 08:48-0500 Respiratory rate 16 /min Inocencio SARAH [facility] 07-16-2024 08:48-0500 Systolic blood pressure 134 mm[Hg] Inocencio SARAH [facility] 04-16-2024 12:22-0400 Body height 175.26 cm [facility] 04-16-2024 12:22-0400 Body mass index (BMI) [Ratio] 25.1 kg/m2 [facility] 04-16-2024 12:22-0400 Body temperature 98.2 [degF] [facility] 04-16-2024 12:22-0400 Body weight 77.11 kg [facility] 04-16-2024 12:22-0400 Diastolic blood pressure 85 mm[Hg] [facility] 04-16-2024 12:22-0400 Heart rate 87 /min [facility] 04-16-2024 12:22-0400 Respiratory rate 18 /min [facility] 04-16-2024 12:22-0400 SaO2% (BldA) [Mass fraction] 97 % [facility] 04-16-2024 12:22-0400 Systolic blood pressure 169 mm[Hg] [facility] 07-29-2023 11:05-0500 Blood Pressure Location Inocencio SARAH [facility] 07-29-2023 11:05-0500 Diastolic blood pressure 80 mm[Hg] Inocencio SARAH [facility] 07-29-2023 11:05-0500 Heart rate 68 /min Inocencio SARAH [facility] 07-29-2023 11:05-0500 Respiratory rate 16 /min Inocencio SARAH [facility] 07-29-2023 11:05-0500 Systolic blood pressure 132 mm[Hg] Inocencio SARAH [facility] 01-14-2023 09:42-0400 Diastolic blood pressure 82 mm[Hg] Inocencio SARAH [facility] 01-14-2023 09:42-0400 Heart rate 89 /min Inocencio SARAH [facility] 01-14-2023 09:42-0400 Mean blood pressure 103 mm[Hg] Inocencio SARAH [facility] 01-14-2023 09:42-0400 Respiratory rate 18 /min Inocencio SARAH [facility] 01-14-2023 09:42-0400 Systolic blood pressure 144 mm[Hg] Inocencio SARAH [facility] 01-14-2023 08:58-0400 Blood Pressure Location Inocencio SARAH [facility] 01-14-2023 08:58-0400 Diastolic blood pressure 93 mm[Hg] Inocencio SARAH [facility] 01-14-2023 08:58-0400 Heart rate 82 /min Inocencio SARAH [facility] 01-14-2023 08:58-0400 Respiratory rate 18 /min Inocencio SARAH [facility] 01-14-2023 08:58-0400 Systolic blood pressure 166 mm[Hg] Inocencio SARAH [facility] 07-19-2022 10:03-0500 Blood Pressure Location Inocencio SARAH [facility] 07-19-2022 10:03-0500 Diastolic blood pressure 82 mm[Hg] Inocencio SARAH [facility] 07-19-2022 10:03-0500 Heart rate 74 /min Inocencio SARAH [facility] 07-19-2022 10:03-0500 Respiratory rate 16 /min Inocencio SARAH [facility] 07-19-2022 10:03-0500 Systolic blood pressure 140 mm[Hg] Inocencio SARAH [facility] 01-18-2022 10:39-0400 Blood Pressure Location Inocencio SARAH [facility] 01-18-2022 10:39-0400 Diastolic blood pressure 90 mm[Hg] [facility] SARAH [facility] 01-18-2022 10:39-0400 Heart rate 75 /min Inocencio SARAH [facility] 01-18-2022 10:39-0400 Respiratory rate 16 /min Inocencio SARAH [facility] 01-18-2022 10:39-0400 Systolic blood pressure 140 mm[Hg] Inocencio SARAH [facility] En[facility]ters Encounter Date Encounter Type Care Provider Facility Start: 01-07-2025 ambulatory Inocencio SARAH Facili ty:[facility] Start: 07-16-2024 End: 07-16-2024 ambulatory Inocencio SARAH Facility:[facility] Start: 07-16-2024 End: 07-16-2024 Patient encounter procedure Inocencio SARAH [facility] Start: 04-16-2024 End: 04-16-2024 ambulatory [facility] Work Phone: Start: 04-16-2024 End: 04-16-2024 Patient encounter procedure [facility] Work Phone: Start: 01-23-2024 End: 01-23-2024 ambulatory Inocencio SARAH Facility:[facility] Start: 01-23-2024 End: 01-23-2024 Patient encounter procedure Inocencio SARAH [facility] Start: 07-29-2023 End: 07-29-2023 Patient encounter procedure Inocencio SARAH [facility] Start: 01-14-2023 End: 01-14-2023 Patient encounter procedure Inocencio R TYREL [facility] Start: 07-19-2022 End: 07-19-2022 Patient encounter procedure Inocencio Stephenie SARAH [facility] Start: 07-07-2022 End: 07-08-[address] INOCENCIO SARAH Facility:[facility] Start: 01-18-2022 End: 01-18-2022 Patient encounter procedure Inocencio SARAH [facility] Start: 01-11-2022 End: 01-12-[address] INOCENCIO SARAH Facility:[facility] Start: 04-06-2017 End: 04-11-2017 Ambulatory Ramonita LEON [facility] Start: 03-30-2017 End: 03-30-2017 [facility] Procedures Date Procedure Procedure Detail Performing Clinician Start: 07-07-[address] JOYCELYN SARAH Comment on above: Performed By: #### P SAD #### [facility] [address] [place] [address] Dr. Shanita Hayden Start: 01-11-[address] JOYCELYN SARAH Comment on above: Performed By: #### P SAD #### [facility] [address] [place] [address] Dr. Shanita Hayden Start: 05-17-2019 Cystoscopic insertio n of ureteric stent Inocencio SARAH Start: 06-01-2015 History of external beam radiation therapy Inocencio SARAH Comment on above: Prostate Cancer Start: 02-04-2015 Transrectal biopsy o f prostate using ultrasound guidance Inocenciogermania SARHA Start: 01-29-2015 Malik JEWELL Plan of Treatment Date Care Activity Detail Author Patient Education [facility] Work Phone: Immunizations Immunization Date Immunization Notes Care Provider Fa cility 04-15-2022 SARS-CoV-2 (COVID-19 ) [id number] Inocencio SARAH [facility] 11-04-2021 SARS-CoV-2 (COVID-19 ) mRNA BNT-162b2 vax Inocencio SARAH [facility] 04-27-2021 SARS-CoV-2 (COVID-19 ) Ad26 vaccine, recombinant Inocencio SARAH [facility] 04-26-2021 influenza virus vaccine, unspecified formulation Inocenciogermania SARAH [facility] 10-13-2020 SARS-CoV-2 (COVID-19 ) mRNA BNT-162b2 vax Inocencio SARAH [facility] 09-18-2020 SARS-CoV-2 (COVID-19 ) mRNA BNT-162b2 vax Inocencio SARAH [facility] Comment on above: Result Comment: 2021: [id number] 09-15-2020 SARS-CoV-2 (COVID-19 ) mRNA BNT-162b2 vax Inocencio SARAH [facility] 08-28-2020 SARS-CoV-2 (COVID-19 ) mRNA BNT-162b2 vax Inocencio SARAH [facility] Comment on above: Result Comment: 2021: [email or web address] NEGATED: Highlighted row has not occurred!11-02-2019 influenza virus vaccine, live, attenuated, for intranasal use Inocencio SARAH [facility] Payers Date Payer Category Payer Medicare [id number] 1960 Medicare [id number] 1945 Unknown [id number] 2.16.84 [id number] 1945 Unknown [id number] 2.16.84 [id number] 1945 Unknown [id number] [id number] 1945 Unknown [id number] 2.16.8 [id number] 1945 Unknown [id number] 2.16.8 [id number] Social History Date Type Detail Facility Start: 07-20-2021 End: 07-16-2024 Tobacco smoking status Never smoked tobacco (finding) [facility] Sex Assigned At Male [facility] Tobacco smoking status Never [facility] Start: 1945 Sex Assigned At Male [facility] Functional Status Date Assessment Result Facility 07-16-2024 Functional Status N/A [facility] 01-23-2024 Functional Status N/A [facility] 07-29-2023 Functional Status N/A [facility] 01-14-2023 Functional Status No [facility] 07-19-2022 Functional Status N/A [facility] 01-18-2022 Functional Status N/A [facility] Clinical Notes 01-18-2022 to 07-16-2024 Note Date & Type Note Facility 07-16-2024 Hospital Discharge instructions Patient Education 07/16/2024 09:37:04 Hormone Suppression Therapy for Prostate Cancer Hormone Suppression Therapy for Prostate Cancer Hormone suppression therapy is a treatment for prostate cancer that can help slow the growth of cancer cells in the prostate gland. It is also called androgen deprivation therapy (ADT) or androgen suppression therapy. Hormone suppression therapy targets male sex hormones (androgens) in the body that help cancer cells grow. Hormone suppression therapy alone will not cure prostate cancer, but it can slow the growth of cancer cells and may shrink tumors over time. Your health care provider can help you find the best treatment that fits your lifestyle. Hormone suppression therapy may be used in the following cases: When prostate cancer has spread too far to other places in the body and cannot be cured by surgery or radiation. When a person has health problems that prevent the use of surgery or radiation. Before radiation to help shrink the size of the cancer and make the radiation treatment more effective. If the prostate cancer remains or comes back following treatment with surgery or radiation. What are the types of hormone suppression therapy? Orchiectomy Orchiectomy, also called surgical castration, is a surgery to remove one or both testicles. The testicles make the two main androgens testosterone and dihydrotestosterone (DHT). This surgery reduces the levels of testosterone in the blood, leading to decreased androgen production. Medicine therapy Medicine therapy, also called medical or chemical castration, involves taking medicines to keep your body from making or using androgens. Medicines can do this in one of three ways: 1.Reducing androgen production by the testicles. Luteinizing hormone-releasing hormone (LHRH) agonists. These medicines are injected or implanted under your skin to lower the amount of androgens that your testicles make. Depending on the medicine, they can be given monthly or up to every 3 to 6 months. If you take these medicines, you may also be prescribed other medicines to help with side effects. LHRH antagonists. These medicines also work to lower the amount of androgens made in the testicles, but they work faster than LHRH agonist medicines and have less severe side effects. They are given as a monthly injection under the skin, and they are used when prostate cancer is in an advanced stage. Estrogens. These medicines are female hormones that help to reduce androgen production by the testicles. Estrogens are not used as commonly as other types of hormone suppression therapy due to their side effects. However, they may be used if other treatments do not work. 2.Blocking androgen attachment throughout the body. Anti-androgen medicines, also called androgen receptor antagonists, block areas on the body where androgens attach. These are pills that are usually used in combination with other types of hormone suppression therapy, like orchiectomy and other medicines. 3.Blocking androgen production throughout the body. Androgen synthesis inhibitor medicines. These medicines help to stop other areas of the body from making androgens. They are taken as pills. They may be used if the prostate cancer is advanced and has not gotten better with surgery or other medicines. A steroid medicine may be given with this type of medicine to help with side effects. What are the risks? Hormone suppression therapy may cause side effects, including: Hot flashes. Diarrhea and nausea. Itching. Sexual side effects, such as: ?Decrease or lack of sexual desire. ?Decrease in size of the penis or testicles. ?Inability to get an erection (erectile dysfunction, or impotence). ?Breast tenderness or increase in breast size. Fatigue. Weight gain. Anemia. Thinning of the bones (osteoporosis) and loss of muscle mass. Depression, mood swings, and trouble with thinking or focusing. Hormone suppression therapy may also increase your risk of high blood pressure, increased cholesterol levels, stroke, heart attack, or diabetes. What are the benefits? One of the main benefits of hormone suppression therapy is having additional treatment options. You may have only one type of treatment, or two or more types at the same time. Treatments may be combined to: Help with side effects. Treat advanced cancer. Where to find more information [place] [employer]: www.cancer.org [employer] [place]: www.cancer.gov Contact a health care provider if: You have pain or side effects that do not get better with treatment. You have trouble urinating. You have new side effects that do not go away. Get help right away if: You have severe chest pain. You have trouble breathing. You have an irregular heartbeat. You have numbness or paralysis in the lower half of your body. You are confused. You have trouble talking or understanding speech. These symptoms may be an emergency. Do not wait to see if the symptoms will go away. Get medical help right away. Call your local emergency services (911 in the [place] Do not drive yourself to the hospital. Summary Hormone suppression therapy is a treatment for prostate cancer that can help to slow the growth of cancer cells in the prostate gland. Hormone suppression therapy alone will not cure prostate cancer, but it can slow the growth of prostate cancer and may shrink tumors over time. Treatment to suppress hormones may include surgery or medicines. Side effects such as hot flashes, changes in sexual function or desire, and weakened bones can result from hormone suppression therapy. This information is not intended to replace advice given to you by your health care provider. Make sure you discuss any questions you have with your health care provider. Document Revised: 10/29/2021 Document Reviewed: 10/29/2021 [employer] Patient Education 2023 [employer]. Follow Up Care 01/23/2024 11:27:20 With:TYREL HINES, Inocencio Casiano, URL Address: [facility] [address] [place] [address]- When: Unknown [facility] 07-16-2024 Note Patient Education Oncology Hormone Suppression Therapy for Prostate Cancer Hormone suppression therapy is a treatment for prostate cancer that can help slow the growth of cancer cells in the prostate gland. It is also called androgen deprivation therapy (ADT) or androgen suppression therapy. Hormone suppression therapy targets male sex hormones (androgens) in the body that help cancer cells grow. Hormone suppression therapy alone will not cure prostate cancer, but it can slow the growth of cancer cells and may shrink tumors over time. Your health care provider can help you find the best treatment that fits your lifestyle. Hormone suppression therapy may be used in the following cases: ??? When prostate cancer has spread too far to other places in the body and cannot be cured by surgery or radiation. ??? When a person has health problems that prevent the use of surgery or radiation. ??? Before radiation to help shrink the size of the cancer and make the radiation treatment more effective. ??? If the prostate cancer remains or comes back following treatment with surgery or radiation. What are the types of hormone suppression therapy? Orchiectomy Orchiectomy, also called surgical castration, is a surgery to remove one or both testicles. The testicles make the two main androgens?testosterone and dihydrotestosterone (DHT). This surgery reduces the levels of testosterone in the blood, leading to decreased androgen production. Medicine therapy Medicine therapy, also called medical or chemical castration, involves taking medicines to keep your body from making or using androgens. Medicines can do this in one of three ways: 1. Reducing androgen production by the testicles. ??? Luteinizing hormone-releasing hormone (LHRH) agonists. These medicines are injected or implanted under your skin to lower the amount of androgens that your testicles make. Depending on the medicine, they can be given monthly or up to every 3 to 6 months. If you take these medicines, you may also be prescribed other medicines to help with side effects. ??? LHRH antagonists. These medicines also work to lower the amount of androgens made in the testicles, but they work faster than LHRH agonist medicines and have less severe side effects. They are given as a monthly injection under the skin, and they are used when prostate cancer is in an advanced stage. ??? Estrogens. These medicines are female hormones that help to reduce androgen production by the testicles. Estrogens are not used as commonly as other types of hormone suppression therapy due to their side effects. However, they may be used if other treatments do not work. 2. Blocking androgen attachment throughout the body. ??? Anti-androgen medicines, also called androgen receptor antagonists, block areas on the body where androgens attach. These are pills that are usually used in combination with other types of hormone suppression therapy, like orchiectomy and other medicines. 3. Blocking androgen production throughout the body. ??? Androgen synthesis inhibitor medicines. These medicines help to stop other areas of the body from making androgens. They are taken as pills. They may be used if the prostate cancer is advanced and has not gotten better with surgery or other medicines. A steroid medicine may be given with this type of medicine to help with side effects. What are the risks? Hormone suppression therapy may cause side effects, including: ??? Hot flashes. ??? Diarrhea and nausea. ??? Itching. ??? Sexual side effects, such as: ? Decrease or lack of sexual desire. ? Decrease in size of the penis or testicles. ? Inability to get an erection (erectile dysfunction, or impotence). ? Breast tenderness or increase in breast size. ??? Fatigue. ??? Weight gain. ??? Anemia. ??? Thinning of the bones (osteoporosis) and loss of muscle mass. ??? Depression, mood swings, and trouble with thinking or focusing. Hormone suppression therapy may also increase your risk of high blood pressure, increased cholesterol levels, stroke, heart attack, or diabetes. What are the benefits? One of the main benefits of hormone suppression therapy is having additional treatment options. You may have only one type of treatment, or two or more types at the same time. Treatments may be combined to: ??? Help with side effects. ??? Treat advanced cancer. Where to find more information ??? [place] [employer]: www.cancer.org ??? [employer] [place]: www.cancer.gov Contact a health care provider if: ??? You have pain or side effects that do not get better with treatment. ??? You have trouble urinating. ??? You have new side effects that do not go away. Get help right away if: ??? You have severe chest pain. ??? You have trouble breathing. ??? You have an irregular heartbeat. ??? You have numbness or paralysis in the lower half of your body. ??? You are confused. ??? You (more content not included)... [facility] 01-23-2024 Hospital Discharge instructions Patient Education 01/23/2024 11:11:58 Hormone Suppression Therapy for Prostate Cancer Hormone Suppression Therapy for Prostate Cancer Hormone suppression therapy is a treatment for prostate cancer that can help slow the growth of cancer cells in the prostate gland. It is also called androgen deprivation therapy (ADT) or androgen suppression therapy. Hormone suppression therapy targets male sex hormones (androgens) in the body that help cancer cells grow. Hormone suppression therapy alone will not cure prostate cancer, but it can slow the growth of cancer cells and may shrink tumors over time. Your health care provider can help you find the best treatment that fits your lifestyle. Hormone suppression therapy may be used in the following cases: When prostate cancer has spread too far to other places in the body and cannot be cured by surgery or radiation. When a person has health problems that prevent the use of surgery or radiation. Before radiation to help shrink the size of the cancer and make the radiation treatment more effective. If the prostate cancer remains or comes back following treatment with surgery or radiation. What are the types of hormone suppression therapy? Orchiectomy Orchiectomy, also called surgical castration, is a surgery to remove one or both testicles. The testicles make the two main androgens testosterone and dihydrotestosterone (DHT). This surgery reduces the levels of testosterone in the blood, leading to decreased androgen production. Medicine therapy Medicine therapy, also called medical or chemical castration, involves taking medicines to keep your body from making or using androgens. Medicines can do this in one of three ways: 1.Reducing androgen production by the testicles. Luteinizing hormone-releasing hormone (LHRH) agonists. These medicines are injected or implanted under your skin to lower the amount of androgens that your testicles make. Depending on the medicine, they can be given monthly or up to every 3 to 6 months. If you take these medicines, you may also be prescribed other medicines to help with side effects. LHRH antagonists. These medicines also work to lower the amount of androgens made in the testicles, but they work faster than LHRH agonist medicines and have less severe side effects. They are given as a monthly injection under the skin, and they are used when prostate cancer is in an advanced stage. Estrogens. These medicines are female hormones that help to reduce androgen production by the testicles. Estrogens are not used as commonly as other types of hormone suppression therapy due to their side effects. However, they may be used if other treatments do not work. 2.Blocking androgen attachment throughout the body. Anti-androgen medicines, also called androgen receptor antagonists, block areas on the body where androgens attach. These are pills that are usually used in combination with other types of hormone suppression therapy, like orchiectomy and other medicines. 3.Blocking androgen production throughout the body. Androgen synthesis inhibitor medicines. These medicines help to stop other areas of the body from making androgens. They are taken as pills. They may be used if the prostate cancer is advanced and has not gotten better with surgery or other medicines. A steroid medicine may be given with this type of medicine to help with side effects. What are the risks? Hormone suppression therapy may cause side effects, including: Hot flashes. Diarrhea and nausea. Itching. Sexual side effects, such as: ?Decrease or lack of sexual desire. ?Decrease in size of the penis or testicles. ?Inability to get an erection (erectile dysfunction, or impotence). ?Breast tenderness or increase in breast size. Fatigue. Weight gain. Anemia. Thinning of the bones (osteoporosis) and loss of muscle mass. Depression, mood swings, and trouble with thinking or focusing. Hormone suppression therapy may also increase your risk of high blood pressure, increased cholesterol levels, stroke, heart attack, or diabetes. What are the benefits? One of the main benefits of hormone suppression therapy is having additional treatment options. You may have only one type of treatment, or two or more types at the same time. Treatments may be combined to: Help with side effects. Treat advanced cancer. Where to find more information [place] [employer]: www.cancer.org [employer] [place]: www.cancer.gov Contact a health care provider if: You have pain or side effects that do not get better with treatment. You have trouble urinating. You have new side effects that do not go away. Get help right away if: You have severe chest pain. You have trouble breathing. You have an irregular heartbeat. You have numbness or paralysis in the lower half of your body. You are confused. You have trouble talking or understanding speech. These symptoms may be an emergency. Do not wait to see if the symptoms will go away. Get medical help right away. Call your local emergency services (911 in the [place] Do not drive yourself to the hospital. Summary Hormone suppression therapy is a treatment for prostate cancer that can help to slow the growth of cancer cells in the prostate gland. Hormone suppression therapy alone will not cure prostate cancer, but it can slow the growth of prostate cancer and may shrink tumors over time. Treatment to suppress hormones may include surgery or medicines. Side effects such as hot flashes, changes in sexual function or desire, and weakened bones can result from hormone suppression therapy. This information is not intended to replace advice given to you by your health care provider. Make sure you discuss any questions you have with your health care provider. Document Revised: 10/29/2021 Document Reviewed: 10/29/2021 [employer] Patient Education 2022 [employer]. Follow Up Care 07/29/2023 12:36:50 With:TYREL HINES, Inocencio Casiano, URL Address: [facility] [address] [place] [address]- [phone] When: Unknown [facility] [place] 07-29-2023 Hospital Discharge instructions Patient Education 07/29/2023 12:27:43 Prostate Cancer [...] stress of having cancer. General instructions Take gglc-upk-pdblbgk and prescription medicines only as told by your health care provider. If you have to go to the hospital, notify your cancer specialist (oncologist). Keep all follow-up visits. This is important. Where to find more information [place] [employer]: www.cancer.org [place] [employer]: www.cancer.net [employer] Cancer [place]: www.cancer.gov Contact a health care provider if: [...] provider. Document Revised: 10/14/2021 Document Reviewed: 10/14/2021 [employer] Patient Education 2022 [employer]. Follow Up Care 01/14/2023 09:47:52 With:TYREL HINES, Inocencio Casiano, URL Address: [address] [place], [place] [id number]- When: Unknown [facility] 01-14-2023 Hospital Discharge instructions Patient Education 01/14/2023 [...] urethra. Follow these instructions at home: Take tqek-dlv-hdjjggz and prescription medicines only as told by [...] provider. Document Revised: 02/03/2022 Document Reviewed: 02/03/2022 [employer] Patient Education 2022 [employer]. Follow Up Care 07/19/2022 10:30:26 With:TYREL HINES, Inocencio Casiano, URL Address: [facility] [address] [place] [address] [phone] When:Within 6 Month(s) Comments:PSA [facility] Hospital Discharge instructions Patient Education 07/19/2022 [...] urethra. Follow these instructions at home: Take bxvj-aio-yqpzcto and prescription medicines only as told by [...] 07/18/2006 Document Revised: 06/12/2019 Document Reviewed: 08/22/2017 [employer] Patient Education 2020 [employer]. Follow Up Care 01/18/2022 11:22:59 With:TYREL HINES, Inocencio Casiano, URL Address: [facility] [address] [place] [address]- When:Within 6 Month(s) Comments:Mohsen GOMEZ [facility] [place] 01-18-2022 Hospital Discharge instructions Patient Education 01/18/2022 11:11:52 Prostate Cancer [...] who: Are older than age 65. Are -[place]. Are obese. Have a family history of [...] cells. Follow these instructions at home: Take ujsf-krt-hucejbc and prescription medicines only as told by [...] 07/18/2006 Document Revised: 06/30/2018 Document Reviewed: 03/28/2017 [employer] Patient Education 2020 [employer]. Follow Up Care 07/20/2021 10:50:48 With:TYREL HINES, Inocencio Casiano, URL Address: [facility] [address] [place] [address]- [phone] When:07/20/2022 Comments:JASON Connolly [facility] Evaluation + Plan note Future Appointments Appointment Date:07/16/2022 09:30:00 AM Scheduled Provider:Inocencio SARAH MD Location:[facility] Appointment Type:URO Office Visit Diagnostic Tests PendingPSA Total 01/18/22 [facility] Evaluation + Plan note Future Appointments Appointment Date:01/07/2023 08:30:00 AM Scheduled Provider:Inocencio SARAH MD Location:[facility] Appointment Type:URO Office Visit Diagnostic Tests PendingPSA Total 07/19/22 [facility] Evaluation + Plan note Future Appointments Appointment Date:07/18/2023 08:45:00 AM Scheduled Provider:Inocencio SARAH MD Location:[facility] Appointment Type:URO Office Visit Diagnostic Tests PendingPSA Total 01/14/23 [facility] Evaluation + Plan note Future Appointments Appointment Date:01/23/2024 10:15:00 AM Scheduled Provider:Inocencio SARAH MD Location:[facility] Appointment Type:URO Office Visit Diagnostic Tests PendingPSA Total 11/30/23 [facility] Evaluation + Plan note Future Appointments Appointment Date:07/16/2024 08:45:00 AM Scheduled Provider:Inocencio SARAH MD Location:[facility] Appointment Type:URO Office Visit Diagnostic Tests PendingPSA Total 01/23/24 [facility] Evaluation + Plan note Future Appointments Appointment Date:01/07/2025 08:45:00 AM Scheduled Provider:Inocencio SARAH MD Location:[facility] Appointment Type:URO Office Visit Diagnostic Tests PendingPSA Total 07/16/24 [facility] Evaluation note Diagnosis Onset Date Shingles [facility] Work Phone: Hospital course Narrative No data available for this section [facility] progress note No data available for this section [facility] Summary Purpose Family History No Family History Records FoundNo Family History Records Found No data available for this section No data available for this section No data available for this section No Family History Records Found Advance Directives No Advanced Directives Records Found Advance Directive Response Recorded Date/ Time Advance Directives No April 12:16pm Chief Complaint and Reason for Visit Chief Complaint rash on back Reason for Visit Shingles Additional Source Comments (unrecognized sect ion and content) No Status Records FoundNo Status Records FoundNo Status Records Found INFORMATION SOURCE (unrecogn ized section and content) DATE CREATED AUTHOR 01/25/2018 [facility] DATE CREATED AUTHOR AUTHOR'S ORGANIZ ATION 07/24/2022 [facility] [place] [facility] DATE CREATED AUTHOR AUTHOR'S ORGANIZ ATION 12/26/2024 Merrick Goldstein [facility] Care Team (unrecognized sect ion and content) Team Status: Active Member Role Status Dates MYRIAM Oliveira Primary Care Provider Active Team Status: Inactive Member Role Status Dates Apurva Kennedy APRN Attending Provider Active Start: April 16, 2024 End: April 16, 2024 MYRIAM Oliveira Primary Care Provider Active Start: April 16, 2024 End: April 16, 2024 Goals (unrecognized section and content) Goals may be documented in a n alternate section FOR RECORDS PERTAINING TO PATIENTS WHO ARE [...] BE BASED ON THE PRIMARY CLINICAL RECORDS. [employer] provides no warranty or guarantee of the accuracy or completeness of information in this document.
[2024-12-28 10:08] LABS: Prostate Specific Antigen Dx <0.13 ng/mL (<=4.00)
== END 2024-12-28 08:46 | disposition home or self-care (01) ==
LOC: LAB 08:47
PROVIDERS: PCP Family Medicine; Visit Provider Urology
DX: C61 Malignant neoplasm of prostate (principal)
CPT/HCPCS: 36415; 84153

== ENCOUNTER 2025-06-25 09:57 | Outpatient (OUT) | payer MEDICARE, SELFPAY ==
--- OUTSIDE RECORDS SUMMARY | 2023-09-19 11:00 | XMS_ITS | Continuity of Care Document ---
Author Organization [facility] Address [address] [place] [address] Phone Care Team Providers Care Plant Engineer Name Role Phone Dewayne Schmitt Unavailable Unavailable Procedures Procedure Date Covid-19 Vaccine Administration 024 Covid-19 Vaccine, 50 Mcg Moderna 12y Plu s Advance Directives Directive Yes / No Effective Date File Name No Information Encounters Encounter Description Practice Location Reason(s) For Visit Diagnoses Date Provider Providers Copied on Encounter [facility], [address], [place], [id number], tel:[phone] [facility] No Information Courtney GARDINER Dewayne. [address], [place], [id number], [place]. tel:[phone] Family History Family Member Type Diagnosis Age At Onset No Information Immunizations Vaccine Date Status Comments Spikevax 12y+ administered Source: New Im munization Record Payers Payer name Insurance type Covered libertarian ID Authoriza tirachel(s) [employer] Medicare Advantage MB [id number] [employer] Supplement Medicare CI [id number] Social History Type Description Quantity Date Captured Comments Alcohol Use Details Unknown Caffeine Use Details Unknown Tobacco Use Status No Information Smoking Status No Information Sex Male Sexual Orientation Straight or heterosexual Gender Identity Male Chief Complaint And Reason For Visit No Information Reason For Referral Reason For Referral No Information Plan Of Treatment Date Type Action Status Goal Tdap Vaccine. Due on 2023 due Goal Tdap. Due on due Goal PRAPARE ASSESSMENT. Due on due Goal Depression screening. Due on due Goal Hep A. Due on du e Goal Influenza vaccine. Due on due Goal Zoster vaccine (). Due on due Goal Hepatitis C screening. Due o n due Goal Unhealthy drug use screening . Due on due History Of Present Illness Encounter Date Complaint History Of Prese nt Illness No Information Functional Status Date Functional Assessmen t No Information Instructions Date Instruction Additional Infor mation No Information Assessments Type Assessment Date No Information Patient Care Teams Name Effective Dates (start - stop) Status Members No Information
--- OUTSIDE RECORDS SUMMARY | 2025-06-25 10:01 | XMS_ITS | Clinical Summary ---
Author Organization [facility] Address [address] [place] [address] Care Team Providers Care Breaker Up Name Role Phone Unavailable Primary Care Provider Unavailabl e Social History Tobacco UseTypesPacks/DayYears UsedDateSmoking Tobacco: Never AssessedSex and Gender InformationValueDate RecordedSex Assigned at BirthNot on fileLegal Sex Male10/13/2022 7:26 PM EDTGender IdentityNot on fileSexual OrientationNot on file Last Filed Vital Signs Vital SignReadingTime TakenCommentsBlood Pressure--Pulse--Temperature-- Respiratory Rate--Oxygen Saturation--Inhaled Oxygen Concentration--Znjlzy70.1 kg (170 lb)09/15/2018 12:00 PM WMTTbksap203.3 cm (5' 9 )09/15/2018 12:00 PM ESTBody Mass Index25. 12:00 PM EST Plan of Treatment Not on file
--- OUTSIDE RECORDS SUMMARY | 2025-06-25 10:03 | XMS_ITS | CCD ---
Author Organization [facility] Inform ion Partnership [facility] [place] [facility] Care Team Providers Care Brim Cutter Name Role Phone Ramonita LEON MICKI Unavailable Unavailable ENGELERRamonita MICKI Unavailable Unavailable ENGELER G MICKI Unavailable Unavailable ENGELER, G MICKI Unavailable Unavailable Elan Perez Primary Care Physician [phone] TYREL, DR SHEARER Attending Unavailable CHRISTIANNE, DR GRAY Primary Care Unavailable TYREL, DR SHEARER Admitting Unavailable TYREL, DR SHEARER Consulting Unavailable MAISHA, DR KATHY Pastrana Consulting Unavailable TYREL, DR SHEARER Attending Unavailable CHRISTIANNE, DR GRAY Primary Care Unavailable TYREL, DR SHEARER Admitting Unavailable TYREL, DR SHEARER Consulting Unavailable Inocencio SARAH Attending Unavailable TYREL, Inocencio Casiano Attending Unavailable Inocencio SARAH Attending Unavailable Allergies Allergy ClassificationReported Allergen(s)Allergy TypeDate of OnsetReaction(s) Facility (1 source)meperidine; Translations: [MEPERIDINE (PF)]Drug Sbnwmly44-51-8207DKM [facility] Repository (1 source)promethazine; Translations: [PROMETHAZINE HCL][facility]rug Lgrsmke63-63-0714 [facility] (7 sources)Meperidine; Translations: [meperidine]Drug Jdjpuys02-34-4963BQS [facility] (7 sources)Promethazine; Translations: [promethazine]Drug Zfijxrx56-26-0250UQF [facility] Medications Current Medications MedicationDrug Class(es)DatesSig (Normalized)Sig (Original)Acidophilus Probiotic Blend (7 sources)Start: 10-78-1867ebaz 1 capsule by mouth once dailyAcidophilus Probiotic Blend 1 cap(s), Oral, Daily Start Date: 03/09/19 Status: Ordered Repeat number:1Start: 28-58-4571sdun 1 capsule by mouth once dailyAcidophilus Probiotic Blend 1 cap(s), Oral, Daily Start Date: 03/09/19 Status: Orderedalendronic acid 70 mg oral tablet (8 sources)BisphosphonateStart: 11-49-8033Dkuqxvbbxml Active MG PO April 16, 2024 12:00amStart: 04-42-7068aomc 1 tablet by mouth every weekFosamax 70 mg Tab 70 mg = 1 tab(s), Oral, qWeek, # 12 tab(s), Refills(s) 3, Pharmacy: [facility]/pharmacy #[id number], 176, cm, 01/23/24 10:35:00 EDT, Height/Length Dosing, 75, kg, 01/23/24 10:35:00 EDT, Weight Dosing Start Date: 04/06/24 Status: Ordered Quantity: 12.0 Unit: tab(s) Repeat number: 4Start: 83-17-1888ojty 1 tablet by mouth every weekFosamax 70 mg Tab 70 mg = 1 tab(s), Oral, qWeek, # 12 tab(s), Refills(s) 3, Pharmacy: [facility]/pharmacy #[id number], 176, cm, 01/14/23 9:02:00 EDT, Height/Length Dosing, 77.9, kg, 01/14/23 9:02:00 EDT, Weight Dosing Start Date: 05/06/23 Status: OrderedStart: 96-70-2076dncr 1 tablet by mouth every weekFosamax 70 mg oral tablet 70 mg = 1 tab(s), Oral, qWeek, # 13 tab(s), Refills(s) 3, Pharmacy: [facility]/pharmacy #[id number], 175, cm, 01/18/22 10:47:00 EDT, Height/Length Dosing, 80.4, kg, 01/18/22 10:47:00 EDT, Weight Dosing Start Date: 05/13/22 Status: OrderedStart: 05-81-5383lgnl 1 tablet by mouth every weekFosamax 70 mg oral tablet 70 mg = 1 tab(s), Oral, qWeek, # 12 tab(s), Refills(s) 3, Pharmacy: [facility]/pharmacy #[id number], 175, cm, 01/09/21 8:30:00 EDT, Height/Length Dosing, 80, kg, 01/09/21 8:30:00 EDT, Weight Dosing Start Date: 06/08/21 Status: Orderedaspirin 81 mg delayed release oral tablet (1 source)Platelet Aggregation Inhibitor, Nonsteroidal Anti-inflammatory Drug Start: 42-45-4477Jxqamuk (Adult Low Dose Aspirin) 81 mg tablet,delayed release (DR/EC) Active 81 MG PO Daily April 16, 2024 12:00ambicalutamide 50 mg oral tablet (8 sources)Androgen Receptor InhibitorStart: 74-24-2147zkog 1 tablet by mouth every twenty-four hoursCasodex 50 mg Tab 50 mg = 1 tab(s), Oral, q24hr, # 90 tab(s), Refills(s) 3, Pharmacy: [facility]/pharmacy #[id number], 176, cm, 07/16/24 9:02:00 EST, Height/Length Dosing, 80.3, kg, 07/16/24 9:02:00 EST, Weight Dosing Start Date: 08/27/24 Status: Ordered Quantity: 90.0 Unit: tab(s) Repeat number: 4Start: 07-66-3095wxdx 50 mg by mouth once dailyBicalutamide Active 50 MG PO Daily April 16, 2024 12:00amStart: 22-09-0081ymax 1 tablet by mouth every twenty-four hoursCasodex 50 mg Tab 50 mg = 1 tab(s), Oral, q24hr, # 90 tab(s), Refills(s) 3, Pharmacy: [facility]/pharmacy #[id number], 176, cm, 01/14/23 9:02:00 EDT, Height/Length Dosing, 77.9, kg, 01/14/23 9:02:00 EDT, Weight Dosing Start Date: 06/06/23 Status: OrderedStart: 53-40-8469wffs 1 tablet by mouth every twenty-four hoursCasodex 50 mg Tab 50 mg = 1 tab(s), Oral, q24hr, # 90 tab(s), Refills(s) 3, Pharmacy: [facility]/pharmacy #[id number], 175, cm, 01/18/22 10:47:00 EDT, Height/Length Dosing, 80.4, kg, 01/18/22 10:47:00 EDT, WeightDosing Start Date: 05/28/22 Status: OrderedStart: 56-23-9243gmik 1 tablet by mouth every twenty-four hours Casodex 50 mg Tab 50 mg = 1 tab(s), Oral, q24hr, # 90 tab(s), Refills(s) 3, Pharmacy: [facility]/pharmacy #[id number], 175, cm, 01/09/21 8:30:00 EDT, Height/Length Dosing, 80, kg, 01/09/21 8:30:00 EDT, Weight Dosing Start Date: 05/26/21 Status: OrderedFish Oils (7 sources)Start: 10-22-7719Vcgn Oil 1,200 mg, Oral Start Date: 03/09/19 Status: Ordered Repeat number: 1Start: 80-95-8829Hyvf Oil 1,200 mg, Oral Start Date: 03/09/19 Status: Ordered1.5 ml leuprolide acetate 30 mg/ml prefilled syringe (7 sources)Gonadotropin Releasing Hormone Receptor AgonistStart: 03-09-2019 Lupron Depot 45 mg/6 months intramuscular injection, extended release IntraMuscular, q6mo Start Date: 03/09/19 Status: Ordered Repeat number: 1Lidocaine (1 source)Antiarrhythmic, Amide Local AnestheticStart: 94-13-4289Tjjvyeher Active 1 APPLIC TOPICAL Twice daily 27 02April 16, 2024 12:00amMulti Vitamins oral tablet (7 sources)Start: 62-54-9074xnkd 1 tablet by mouth once dailyMulti Vitamins oral tablet 1 tab(s), Oral, Daily Start Date: 03/09/19 Status: Ordered Repeat number: 1Start: 90-24-7238jvpa 1 tablet by mouth once dailyMulti Vitamins oral tablet 1 tab(s), Oral, Daily Start Date: 03/09/19 Status: OrderedSuper B Complex (7 sources)Start: 32-55-9842baox 1 tablet by mouth once dailySuper B Complex 1 tab(s), Oral, Daily Start Date: 03/09/19 Status: Ordered Repeat number: 1Start: 08-31-5422kizp 1 tablet by mouth once dailySuper B Complex 1 tab(s), Oral, Daily Start Date: 03/09/19 Status: Orderedtamsulosin hydrochloride 0.4 mg oral capsule (8 sources)alpha-Adrenergic BlockerStart: 01-07-2025 End: 74-96-2598rxvx 1 capsule by mouth twice dailyFlomax 0.4 mg Cap 0.4 mg = 1 cap(s), Oral, BID, X 90 day(s), # 180 cap(s), Refills(s) 3, Pharmacy: [facility]/pharmacy #[id number], 176, cm, 01/07/25 9:32:00 EDT, Height/Length Dosing, 80.1, kg, 01/07/25 9:32:00 EDT, Weight Dosing Start Date: 01/07/25 Stop Date: 01/02/26 Status: Ordered Quantity: 180.0 Unit: cap(s)Repeat number: 4Start: 04-16-2024 Tamsulosin Active MG PO April 16, 2024 12:00amStart: 57-24-8902ptnb 1 capsule by mouth twice dailyFlomax 0.4 mg Cap 0.4 mg = 1 cap(s), Oral, BID, # 180 cap(s), Refills(s) 3, Pharmacy: [facility]/pharmacy #[id number], 176, cm, 07/29/23 11:06:00 EST, Height/Length Dosing, 77.9, kg, 07/29/23 11:06:00 EST, Weight Dosing Start Date: 01/16/24 Status: OrderedStart: 35-87-1911qpft 1 capsule by mouth twice dailyFlomax 0.4 mg Cap 0.4 mg = 1 cap(s), Oral, BID, # 180 cap(s), Refills(s) 3, Pharmacy: [facility]/pharmacy #[id number], 176, cm, 01/14/23 9:02:00 EDT, Height/Length Dosing, 77.9, kg, 01/14/23 9:02:00 EDT, Weight Dosing Start Date: 01/14/23 Status: OrderedStart: 65-53-0430klug 1 capsule by mouth twice daily Flomax 0.4 mg Cap 0.4 mg = 1 cap(s), Oral, BID, # 180 cap(s), Refills(s) 3, Pharmacy: [facility]/pharmacy #[id number], 175, cm, 01/18/22 10:47:00 EDT, Height/Length Dosing, 80.4, kg, 01/18/22 10:47:00 EDT, WeightDosing Start Date: 01/18/22 Status: OrderedvalACYclovir 1000 mg oral tablet (1 source)Herpesvirus Nucleoside Analog DNA Polymerase Inhibitor, Herpes Simplex Virus Nucleoside Analog DNA Polymerase Inhibitor, Herpes Zoster Virus Nucleoside Analog DNA Polymerase InhibitorStart: 76-41-1088rbbt 1000 mg by mouth three times dailyValacyclovir Active 1000 MG PO Three times daily 18 02April 16, 2024 12:00am Problems Problem ClassificationProblemDateDocumented DateEpisodic/ChronicCalculus of urinary tract (20 sources)History of calculus of kidney; Translations: [Personal history of urinary calculi]Onset: 25-54-2556OmnvblvmOngyvl of prostate (19 sources)Malignant neoplasm of prostate; Translations: [Carcinoma of prostate]Onset: 50-29-4073AyoyozyKmjmzd of prostate (7 sources)History of malignant neoplasm of rcsgfzfu97-33-5008Tlgnkajn Genitourinary symptoms and ill-defined conditions (20 sources)Dysuria; Translations: [Incomplete emptying of bladder]05-18-2019 EpisodicHyperplasia of prostate (16 sources)Benign prostatic hypertrophy with outflow obstruction; Translations: [Benign prostatic hyperplasia with lower urinary tract symptoms]Onset: 91-47-8780VwfsfynDzyze diseases of bladder and urethra (6 sources)Spasm of -58-6991CyahhgqDanru diseases of kidney and ureters (1 source)Urinary tract obstruction; Translations: [Other obstructive and reflux uropathy]Onset: 16-07-3761RcbjsrnaVyhrv screening for suspected conditions (not mental disorders or infectious disease) (7 sources)Raised prostate specific ehuvmyf13-71-3264PxqdvnbiKnmixihs codes; unclassified (1 source)Body mass index 20-24 - normal; Translations: [Body mass index (BMI) 24.0-24.9, adult]Onset: 82-46-3615SdicorjuTimrjntwy malignancies (7 sources)Secondary malignant neoplasm of chmi93-28-1710YtbxbzqBwkudiomybmg (1 source)Unknown / UNK(Unknown)Onset: 38-85-2164Wmbyo infection (2 sources)Herpes zoster; Translations: [Zoster without complications]04-16-2024 Episodic Results Test NameValueInterpretationReference RangeFacilityProvider Letteron 03-06-2025 Provider LetterProvider Letter March 06, 2025 LORRAINE INFANTE [address] [facility] [address] [place] [address] : 1945 Dear Lorraine, We have been trying to reach you with no success. Please fiber picker medication that was sent to your pharmacy on 03/04/2025. Also, could you please provide us with your current information. Thank you for your prompt attention to this matter. Sincerely, [facility] [address] [facility] [place] [address] [place] [address] FsomnzDiyfxuProMedica Fostoria Community HospitalAmbulatory Visit Summaryon 04-87-0976Cphcraztmh Visit SummaryAmbulatory Visit Summary LORRAINE INFANTE :1945 Visit Date:01/07/2025 Ambulatory Visit Instructions Your Diagnosis Prostate cancer [...] (Temporal Artery) 37 ???C Heart Rate (Peripheral) 79 Respiratory Rate 17 Blood Pressure 138/87 Height 176 cm Height 69 in Weight 80.1 kg Weight 176.59 lb BMI 25.86 What to do next You Need to Schedule the Following Appointments Follow Up with TYREL HINES, Inocencio Casiano, URL When: Where: [facility] [address] , [place] [address]- Medications What How Much When Instructions Unchanged [...] Tablets By Mouth Every day Contact prescribing physicianif questions or concerns Unchanged omega-3 polyunsaturated fatty acids (Fish Oil) 1,200 Milligram By Mouth Contact prescribing physician if questions or concerns Medications and Immunizations Administered Given Lupron Depot 45 mg/6 months intramuscular injection, extended release, 45 mg, IntraMuscular. For: Prostate cancer Allergies No Known Allergies Problems Ongoing - Any problem that you are currently receiving treatment for. BPH with urinary obstruction History of kidney stones History of prostate cancer Incomplete emptying of bladder Kidney stones Metastasis to bone Nocturia Prostate cancer Historical - Any problem that you are [...] main androgens???testosterone and dihydrotestosterone (DHT). This surgery reduces the levels of testosterone in the blood, leading to decreased androgen production. Medicine therapy Medicine therapy, also called medical or chemical castration, involves taking medicines to keep your body from making or using androgens. Medicines can do this in one of three ways: 1. Reducing androgen production (more content not included)...[facility] HospitalUrology Office/Clinic Noteon 05-86-0556Mkbqvuf Office/Clinic Note Urology Office/Clinic Note Chief Complaint 6 month with PSA and Lupron HPI Staff 6 month with PSA and Lupron Dx: prostate cancer, BPH with urinary obstruction and hx of kidney stones PSA: 12/28/24 - <0.13 Casodex 50mg qd and Tamsulosin BID IPSS score today is 5. Denies all urinary concerns at this time. History of Present Illness Tests reviewed: UA, [...] & Measurements T: 37 ???C(Temporal Artery) HR: 79(Peripheral) RR: 17 BP: 138/87 HT: 176 cm HT: 69 in WT: 80.1 kg WT: 176.59 lb BMI: 25.86 General Appearance: alert, no distress, well nourished, well developed male. Assessment/Plan 1. Prostate cancer (C61: Malignant neoplasm of prostate) PSA: 07/06/21 - 0.05 06/13/22 - 0.05 07/07/22 - 0.13 01/05/23 - <0.13 07/20/23 - <0.13 01/06/24 - <0.13 07/10/24 - <0.13 12/28/24 - <0.13 Original pathology showed [place] 9 (4+5) in multiple cores. PSA prior to bx was 62. EBRT 06/2015. Taking Casodex 50mg QD and Fosamax 70mg 1x/wk. Also taking Ca & Vit D. Prior Lupron 07/16/24. PSA remains stable. Will cont to monitor. He is only taking daily multivitamin, needs to be taking dedicated daily Ca and Vit D supplements for bone health as ADT can cause bone thinning. Taking Casodex 50 mg q24hr and Fosamax 70 mg qWK. Lupron 45 mgIM injection given today with no complications. Left glute. Pt denies side effects at this time. Follow up 6 mos with PSA, Lupron or sooner if needed. Pt understands and agrees with plan. 2. BPH with urinary obstruction (N40.1: Benign prostatic hyperplasia with lower urinary tract symptoms) UA neg. Taking Tamsulosin 0.4 mg bid. Refill sent to [facility]. Voiding well, no complaints. 3. History of kidney stones (Z87.442: Personal history of urinary calculi) KUB 12/30/20 - neg. KUB 07/07/22 [facility] - neg. KUB 01/06/24 [facility] - neg. Follow-up With When Contact Information TYREL HINES, Inocencio Casiano, URL [facility] [address], [place] [address]- Additional Instructions: 6 mos with PSA, Lupron Patient Education Hormone Suppression Therapy for Prostate Cancer Chantal Morse, personally scribed for Dr. Sarah on 01/07/2025 09:45:07. . Documentation recorded by the scribe, Chantal Boykin, accurately reflects the services(s) I performed and decisions made by me. Authenticated by Dr. Sarah on 01/07/2025 09:49:38. Problem List/Past Medical History Ongoing BPH with urinary obstruction History of kidney stones History of prostate cancer Incomplete emptying of bladder Kidney stones Metastasis to bone Nocturia Prostate cancer Historical Elevated PSA Procedure/Surgical History Cystoscopic insertion [...] B Complex, 1 tab(s), Oral, Daily Allergies No Known Allergies Social History Alcohol - Denies Alcohol Use, 01/14/2023 Never., 01/02/2025 Substance Abuse - Denies Substance Abuse, 01/14/2023 Never., 01/02/2025 Tobacco - Denies Tobacco Use, 01/14/2023 Never (less than 100 in lifetime) Tobacco Use:. Yes, 01/07/2025 Family History Acute myocardial infarction: Father. Primary malignant neoplasm of lung: Mother. Immunizations Vaccine Date Status Comments SARS-CoV-2 (COVID-19) mRNAMUL.ORD![id number] 04/15/2022 Recorded SARS-CoV-2 (COVID-19) mRNA BNT-162b2 vax 11/04/2021 Recorded SARS-CoV-2 (COVID-19) Ad26 vaccine 04/27/2021 Recorded influenza virus vaccine, inactivated 04/26/2021 Recorded SARS-CoV-2 (COVID-19) mRNA BNT-162b2 vax 10/13/2020 Recorded SARS-CoV-2 (COVID-19) mRNA BNT-162b2 vax 09/18/2020 Recorded 2022-07-19: TPV75 SARS-CoV-2 (COV (more content not included)...[facility] Comment on above:Result Comment: Electronically Signed By: Inocencio SARAH MD\.br\Date and Time Signed: 01/07/25 09:49 EDT\.br\Electronically Co-Signed By: Chantal Boykin\.br\Date and Time Co-Signed: 01/07/25 09:46 EDTAmbulatory Visit Summaryon 38-68-7880Ugousamifl Visit SummaryAmbulatory Visit Summary LORRAINE INFANTE :1945 Visit Date:07/16/2024 Ambulatory Visit Instructions Your [...] Inocencio SARAH MD Where: [facility] [address] [place] [address]- You Need to Schedule the Following Appointments Follow Up with Inocencio SARAH MD, URL When: Where: [facility] [address] , [place] [address]- Medications What How Much When Instructions Unchanged [...] Tablets By Mouth Every day Contact prescribing physicianif questions or concerns Unchanged omega-3 polyunsaturated fatty [...] dihydrotestosterone (DHT). This surgery (more content not included)...[facility] CenterU[facility] Office/Clinic Noteon 27-82-6239Iwlywms Office/Clinic NoteUrology Office/Clinic Note Chief Complaint prostate cancer HPI [...] <0.13 07/10/24 - <0.13 Original pathology showed [place] 9 [...] Inocencio Casiano, URL [facility] [address] [place] [address]- Additional Instructions: 6 mos with Lupron and PSA Patient Education Hormone Suppression Therapy for Prostate Cancer I, Chantal Boykin, personally scribed for Dr. Sarah on 07/16/2024 09:37:21. . Documentation recorded by the scribe, Chantal Boykin, accurately reflects the services(s) I performed and [...] Family History Acute myocard (more content not included)...[facility] Comment on above:Result Comment: Electronically Signed By: Inocencio SARAH MD\.br\Date and Time Signed: 07/16/24 09:39 EST\.br\Electronically Co-Signed By: Chantal Boykin.br\Date and Time Co-Signed: 07/16/24 09:37 ESTXR KUB 1 VIEWon 74-29-6009TO KUB 1 VIEWEXAMINATION: XR KUB 1 VIEW HISTORY: Primary malignant neoplasm of prostate COMPARISON: No relevant comparison available. FINDINGS: BOWEL GAS PATTERN: No abnormal dilation or deviation. CALCIFICATIONS: None significant. OTHER: Moderate bilateral hip osteoarthropathy. Degenerative spondylosis of the spine IMPRESSION: No acute abnormality Electronically authenticated by: KATHY FERRERA Date: 2022-07-07 11:[address] [place], [place] [address]CNOVon 45-26-7657WFUTKcwvnn Visit (RADTSA) --------LORRAINE INFANTE ([id number]) 1945 MDate Time Provider Department04/06/17 11:00 AM [...] PSA 62.1With solitary pelvic metastatic focus Stage: O1Z2W0Yrqynrqwg Course SummaryTreatment Technique: IMRT;RA Imaging: kv cone beam CT image guidanceDate Start: 04/15/2015 Date Complete: 06/16/2015TreatmentArea Number [employer] Number of Fractions (Elapsed Days) DosePelvis including left ischium 2 6MV 28(37) 5040cGyProstate 2 6MV 16(24) 2880cGyTotal Prostate 44(61) 7920cGyINTERVAL HISTORY: The patient is in today for a follow-up. Overall doingwell. Denies any new problems.PSA HISTORY:PSA (ng/mL)Date Value03/30/2017 ANDlt;0.03008/18/2016 ANDlt;0.0306/ ANDlt;0.0312/ 0.08 ALLERGIES:ALLERGIESAllergen Reactions- Demerol [Meperidine* Other: See Comments hypotension- Phenergan [Prometha* Other: See Comments hypotensionMEDICATIONS:nabumetone (RELAFEN) 750 mg tablet Take 750 mgby mouth twice daily.leuprolide, 6 month, (LUPRON) sykt [...] kg (174 lb 3.2 oz) BMI 26.1 kg/h3Ypgubno Appearance: Well appearing, alert, in no acute distress, well-hydrated,well nourished..Skin: Skin color, texture, turgor normal, no suspicious rashes or lesions.Abdomen: Normal abdominal exam, Abdomen soft, non-tender. No masses,organomegaly.Rectal: Prostate without nodularityASSESSMENT/PLAN: Prostate cancer, locally advanced with oligometastatic diseaseincluding 1 foci involving the leftpubic ramus. Patient doing well with continued undetectable PSA. No significant posttreatment problems. Patient has continued follow-up with Dr. Tyrel de la torre to receive Lupron.I've asked patient otherwise come back in one year for further post radiationfollow-up.Signed by: Connie Esposito Provider: Ramonita LENO [[id number]]Allergies As of Date: 04/06/2017 Noted Allergy ReactionDEMEROL (MEPERIDINE (PF)) 04/15/2015 14 - Other: See Comments Comments: hypotensionPHENERGAN (PROMETHAZINE HCL) 04/15/2015 14 - Other: See Comments Comments: hypotensionDate Reviewed: 04/06/2017Reviewed by: Cindy QuinonesRnBairon Bear RN - Fully AssessedReason for Visit: Prostate Cancer [590]Primary Visit Diagnosis:Malignant neoplasm of prostate (HCC) [C61]Order(s):PSA/PROSTSPECAG DIAG [SQPSA] Order #: [id number] FUTUREPrescriptions as of 04/06/2017 Sig: NABUMETONE 750 [...] (around 04/06/2018).Follow-up and Disposition History RecordedEncounter Number: [id number] Status:Closed by Ramonita LEON MD on 04/08/17NoTrumbull Memorial HospitalPROESSon 13-39-7510DSNKCEUKUIW ID: [id number]: Ramonita Romeroervice: (none)Author Type: PhysicianType: Progress Notes Filed: 04/08/2017 2:42 PMNote Text:Radiation Oncology - Follow Up NotePATIENT NAME: Lorraine InfantePATIENT : Prostate cancer, adenocarcinomaGleason score 9(4,5)Pretreatment PSA: PSA62.1With solitary pelvic metastatic focus Stage: Z5P4P9Mixiqcmlg Course SummaryTreatment Technique: IMRT;RA Imaging: kv cone beam CT image guidanceDate Start: 04/15/2015 Date Complete: 06/16/2015Treatment Area Number [employer] Number of Fractions (Elapsed Days)DosePelvis including left ischium 26MV 28(37) 5040cGyProstate 2 6MV 16(24) 2880cGyTotal Prostate 44(61) 7920cGyINTERVAL HISTORY: The patient is in today for a follow-up. Overall doingwell. Denies any new problems.PSA HISTORY:PSA (ng/mL)Date Value03/30/2017 <0.0301 <0.0306 <0.0312 0.08 ALLERGIES:ALLERGIESAllergen Reactions- Demerol [Meperidine* Other: See Comments hypotension- Phenergan [Prometha* Other: See Comments hypotensionMEDICATIONS:nabumetone (RELAFEN) 750 mg tablet Take 750 mg bymouth twice daily.leuprolide, 6 month, (LUPRON) sykt IM syringe kit Inject 45 mgintramuscularly onetime only.alendronate (FOSAMAX) 70 mg tablet Take 70 mg by mouth once each week.tamsulosin ER (FLOMAX) 0.4 mg cp24 twice daily.multivitamin tablet Take 1 tablet by mouth once daily.PERTINENT REVIEW OF SYSTEMS:Hematuria: noneDysuria: noneIncontinence: noneUrgency: mildCatheter use: noneMedications to aid urination: Flomax- Total AUA Score: 8Bowel movement frequency: 1- 2/dayBowel movement quality: variable:Blood per rectum: nonePHYSICAL EXAM:BP 170/84 Wt 79 kg (174 lb 3.2 oz) BMI 26.1 kg/b3Jmfoogz Appearance: Well appearing, alert, in no acute [...] one year for further postradiation follow-up.Signed by: Saige EspositoalCBlanchard Valley Health System Bluffton HospitalPSA, Diagnosticon 37-16-3850LRC, Diagnostic<0.35Qsniuo0.00-2.59 [facility] on above:Result Comment: Total PSA test methodology used is the Electrochemiluminescence Immunoassay.For an individual patient, the significance of a PSA level should be interpreted in a broad clinical context, including age, race, family history, digital rectal exam, prostate size, results of prior testing(prostate biopsy, free PSA, PCA3), and use of [...] Engl J Med 2003,349:335-42. Performed By: #### PSA ####[facility] [address] [place], [place] [phone] Vital Signs Date TimeVital SignValuePerforming OomtpcrnyKrgjcsca25-18-1622 08:48-0500Blood Pressure LocationPacat SARAH [facility]12-16-2024 08:48-0500Body pmduzfwtjlo91.6 [degF]Inocencio SARAH [facility]12-16-2024 08:48-0500Diastolic blood evbmmwkj38 mm[Hg]Inocencio SARAH [facility]12-16-2024 08:48-0500Heart rate78 /minPatrick SARAH [facility]12-16-2024 08:48-0500Respiratory rate16 /minEsauWeiPhone.comsunshine SARAH [facility]12-16-2024 08:48-0500Systolic blood waaynvrh441 mm[Hg]Inocenciogermania SARAH [facility]09-16-2024 12:22-0400Body qcvnig476.26 cmK[facility]09-16-2024 12:22-0400Body mass index (BMI) [Ratio]25.1 kg/s9JkdawlklmKettering Health [facility]09-16-2024 12:22-0400Body aritltldklt19.2 [degF][facility]09-16-2024 12:22-0400Body .11 kgKettering Health [facility]09-16-2024 12:22-0400Diastolic blood mm[Hg] [facility]09-16-2024 12:22-0400Heart rate87 /[facility]09-16-2024 12:22-0400Respiratory rate18 /[facility]09-16-2024 12:22-1079CyN2% (BldA) [Mass fraction]97 % [facility]09-16-2024 12:22-0400Systolic blood yxrndmnr713 mm[Hg][facility]12-29-2023 11:05-0500Blood Pressure LocationPatricsunshine [employer] [facility]12-29-2023 11:05-0500Diastolic blood mm[Hg]Inocenciogermania SARAH [facility]12-29-2023 11:05-0500Heart rate68 /minEsauiCetana [facility]12-29-2023 11:05-0500Respiratory rate16 /minPatrick SARAH [facility]12-29-2023 11:05-0500Systolic blood ihijnpwf282 mm[Hg]Inocenciogermania SARAH [facility]06-16-2023 09:42-0400Diastolic blood hbpggyiq51 mm[Hg]Inocencio SARAH [facility]06-16-2023 09:42-0400Heart rate89 /minPatrick SARAH [facility]06-16-2023 09:42-0400Mean blood mm[Hg]Inocencio SARAH [facility]06-16-2023 09:42-0400Respiratory rate18 /minPatrick SARAH [facility]06-16-2023 09:42-0400Systolic blood mm[Hg]Inocencio SARAH [facility]06-16-2023 08:58-0400Blood Pressure LocationPatrick SARAH [facility]06-16-2023 08:58-0400Diastolic blood douwlvxe96 mm[Hg]Inocencio SARAH [facility]06-16-2023 08:58-0400Heart rate82 /minPatrick SARAH [facility]06-16-2023 08:58-0400Respiratory rate18 /minPatrick SARAH [facility]06-16-2023 08:58-0400Systolic blood nuhrscki011 mm[Hg]Inocencio SARAH [facility]12-19-2022 10:03-0500Blood Pressure LocationPatrick SARAH [facility]12-19-2022 10:03-0500Diastolic blood xbuwoltm64 mm[Hg]Inocencio SARAH [facility]12-19-2022 10:03-0500Heart rate74 /minPatrick [employer] [facility]12-19-2022 10:03-0500Respiratory rate16 /minPatrick [employer] [facility]12-19-2022 10:03-0500Systolic blood poixeqgb241 mm[Hg]Inocencio SARAH [facility]06-20-2022 10:39-0400Blood Pressure LocationPaiCetana [facility] 06-20-2022 10:39-0400Diastolic blood plvefeei09 mm[Hg] Inocencio SARAH [facility] 06-20-2022 10:39-0400Heart rate75 /minPatrick SARAH [facility] 06-20-2022 10:39-0400Respiratory rate16 /minInocencio SARAH [facility] 06-20-2022 10:39-0400Systolic blood mm[Hg] Inocencio TYREL [facility] Encounters Encounter DateEncounter TypeCare ProviderFacilityStart: 55-10-0536uznkcnvptj Inocencio SARAHFacility:EU evueStart: 01-07-2025 End: 13-06-6595ylxpzlxraqXzsnskn R WATERSFacility:EU ueStart: 01-07-2025 End: 41-61-6720Vpbafqm encounter procedureInocencio SARAH [facility] start: 07-16-2024 End: 90-24-5349gagkcljyjgIhkednm R WATERSFacility:EU evueStart: 07-16-2024 End: 25-55-9307Toodggu encounter procedureInocencio SARAH [facility] start: 04-16-2024 End: 34-68-4111vfxzrvzjvmAhpzqelzlProMedica [facility] Work Phone: Start: 04-16-2024 End: 92-91-7526Amjeoha encounter procedureVidant [facility] Work Phone: Start: 01-23-2024 End: 79-98-5754Riokeqb encounter procedureInocencio SARAH [facility] start: 07-29-2023 End: 75-68-8093Fpccvqp encounter procedurePatricsunshine SARAH [facility] start: 01-14-2023 End: 54-25-2674Zguskay encounter procedurePatricsunshine SARAH [facility] start: 07-19-2022 End: 89-67-5707Ujtbmdu encounter procedurePatricsunshine SARAH [facility] start: 07-07-2022 End: 26-74-0174urnlwwoazvOW INOCENCIO SARAHFacility:B9Wjfyo: 01-18-2022 End: 41-27-9816Yawkglv encounter procedureInocencio SARAH [facility] start: 01-11-2022 End: 00-37-2414fgbzouxcpsZNFabi SARAHFacility:N8Siveb: 04-06-2017 End: 90-94-6696GwplvbofvqZMercy Health Clermont HospitalStart: 03-30-2017 End: 99-86-9976RejdkqmnzsECumberland Memorial Hospital Ansari Procedures DateProcedureProcedure DetailPerforming ClinicianStart: 98-10-5221OUE screening DR INOCENCIO Mike on above:Performed By: #### PSAD #### [facility] [address] [place] [address] Dr. Shanita Da Silvaart: 40-55-3373FIA screeningDR INOCENCIO Mike on above: Performed By: #### PSAD #### [facility] [address] [place] [address] Dr. Shanita Da Silvaart: 08-89-7545Jmqwshhdmap insertion of ureteric stentInocencio SARAH Start: 84-40-3751Nbqfocv of external beam radiation therapyInocencio SARAH Comment on above:Prostate CancerStart: 02-04-2015 Transrectal biopsy of prostate using ultrasound guidanceInocencio SARAH Start: 99-10-8777UhhwvdwuptdTtxerqz WATERS Plan of Treatment DateCare ActivityDetailAuthorPatient [facility] Work Phone: Immunizations Immunization DateImmunizationNotesCare KqlgtqstThkizsjc34-99-3381MLRX-FuD-1 (COVID-19) mRNAMUL.ORD![id number] SARAH [facility]04-06-2022SARS-CoV-2 (COVID-19) mRNA BNT-162b2 vaxInocencio SARAH [facility] 09-459113-32-8815DBMQ-FbK-6 (COVID-19) Ad26 vaccine, recombinantPacat [employer] [facility] 09-188820-17-7774dppzhtohq virus vaccine, unspecified formulationInocencio SARAH [facility] [id number]-TvX-0 (COVID-19) mRNA BNT-162b2 vax Inocencio [employer] [facility] [id number]-IbF-6 (COVID-19) mRNA BNT-162b2 vax Inocencio [employer] [facility] HospitalComment on above:Result Comment: 2022-07-19: VZX7450-34-9795LMKD-LvX-6 (COVID-19) mRNA BNT-162b2 vaxInocencio SARAH [facility] [id number]-XhD-6 (COVID-19) mRNA BNT-162b2 vax Inocencio SARAH [facility] HospitalComment on above:Result Comment: 2022-07-19: [id number]: Highlighted row has not occurred!03-99-0245vfhstwdtn virus vaccine, live, attenuated, for intranasal useInocencio SARAH [facility] Payers DatePayer CategoryPayerPolicy [id number] [id number] 1961 [id number] 2..[id number] [id number] 2..[id number] [id number] Social History DateTypeDetailFacilityStart: 07-20-2021 End: 64-98-4866Kvkbtju smoking statusNever smoked tobacco (finding)[facility] sex [facility] Tobacco smoking statusNeverExecutive [facility] of [facility] Companytart: 14-76-3340Sog Assigned At [facility] Hospitalexual OrientationExec[facility] start: 59-93-9076SosFlbl (finding)[facility] Functional Status IzfyRiixanurgyFeesvlZrvpwwvu35-51-1958Uwjsucuemz StatusN/AExec[facility]06-24-2024Functional StatusN/A[facility]12-29-2023Functional StatusN/A [facility]06-16-2023Functional StatusNoExec[facility]12-19-2022 Functional StatusN/A[facility] 54-41-2698Qdtqxktnjn StatusN/AExec[facility] 7-bites Clinical Notes 01-18-2022 to 01-07-2025 Note Date & LevoPytqDsmuqmir24-75-8709 Hospital Discharge instructions Patient Education 01/07/2025 09:44:51 Hormone Suppression Therapy for Prostate Cancer Hormone [...] you take these medicines, you may also beprescribed other medicines to help with side effects. LHRH antagonists. These medicines also work to lower the amount of androgens made in the testicles,but they work faster than LHRH agonist medicines [...] suppression therapy is having additional treatment options. Youmay have only one type of treatment, or two or more types at the same time. Treatments may be combined to: Help with side effects. Treat advanced cancer. Where to find more information [place] [employer]: www.cancer.org National Cancer [place]: www.cancer.gov Contact a health care provider if: [...] provider. Document Revised: 10/29/2021 Document Reviewed: 10/29/2021 [employer] Patient Education 2023 [employer]. Follow Up Care 07/16/2024 09:40:35 With:TYREL HINES, Inocencio Casinao, URL Address: [facility] [address] [place] [address]- When: Unknown [facility] [place] 06-09-2025 NotePatient Education Oncology Hormone Suppression Therapy for Prostate [...] suppression therapy is having additional treatment options. Youmay have only one type of treatment, or two or more types at the same time. Treatments may be combined to: ??? Help with side effects. ??? Treat advanced cancer. Where to find more information ??? [place] [employer]: www.cancer.org ??? National Cancer [place]: www.cancer.gov Contact a health care provider if: [...] are confused. ??? You (more content not included)...[facility]12-16-2024 Hospital Discharge instructions Patient Education 07/16/2024 09:37:04 [...] you take these medicines, you may also beprescribed other medicines to help with side effects. LHRH antagonists. These medicines also work to lower the amount of androgens made in the testicles,but they work faster than LHRH agonist medicines [...] suppression therapy is having additional treatment options. Youmay have only one type of treatment, or two or more types at the same time. Treatments may be combined to: Help with side effects. Treat advanced cancer. Where to find more information [place] [employer]: www.cancer.org National Cancer [place]: www.cancer.gov Contact a health care provider if: [...] provider. Document Revised: 10/29/2021 Document Reviewed: 10/29/2021 [employer] Patient Education 2023 [employer]. Follow Up Care 01/23/2024 11:27:20 With:TYREL HINES, Inocencio Casiano, URL Address: [facility] [address] , [place] [address]- When: Unknown [facility] 12-16-2024 NotePatient Education Oncology Hormone Suppression Therapy for Prostate [...] suppression therapy is having additional treatment options. Youmay have only one type of treatment, or two or more types at the same time. Treatments may be combined to: ??? Help with side effects. ??? Treat advanced cancer. Where to find more information ??? [place] [employer]: www.cancer.org ??? National Cancer [place]: www.cancer.gov Contact a health care provider if: [...] are confused. ??? You (more content not included)...[facility]06-24-2024 Hospital Discharge instructions Patient Education 01/23/2024 11:11:58 [...] you take these medicines, you may also beprescribed other medicines to help with side effects. LHRH antagonists. These medicines also work to lower the amount of androgens made in the testicles,but they work faster than LHRH agonist medicines [...] suppression therapy is having additional treatment options. Youmay have only one type of treatment, or two or more types at the same time. Treatments may be combined to: Help with side effects. Treat advanced cancer. Where to find more information [place] [employer]: www.cancer.org National Cancer [place]: www.cancer.gov Contact a health care provider if: [...] provider. Document Revised: 10/29/2021 Document Reviewed: 10/29/2021 [employer] Patient Education 2022 [employer]. Follow Up Care 07/29/2023 12:36:50 With:TYREL HINES, Inocencio Casiano, RADHA Address: [facility] [address] , [place] [phone] When: Unknown [facility] [place] 12-29-2023 Hospital Discharge instructions Patient Education 07/29/2023 12:27:43 [...] such as a bone scan, CT scan, PETscan, or MRI. Stages of prostate cancer The [...] under a microscope. This is called the [place] score and the total score can range from 6 10, indicating how likely it is that the cancer will spread (metastasize) to other parts of the body. The higher the score, the greater thelikelihood that the cancer will spread. [place] 6 or lower: This indicates that the [...] you need help quitting, ask your health careprovider. Eat a healthy diet. To do this: [...] prostate cancer. Meeting with a support group mayhelp you learn to manage the stress of having cancer. General instructions Take uliw-yqe-xnvomyr and prescription medicines only as told by your health care provider. If you have to go to the hospital, notify your cancer specialist (oncologist). Keep all follow-up visits. This is important. Where to find more information [place] [employer]: www.cancer.org [place] Society of Clinical Oncology: www.cancer.net National Cancer [place]: www.cancer.gov Contact a health care provider if: [...] prostate cancer. Meeting with a support group mayhelp you learn to manage the stress of having cancer. This information is not intended to replace advice given to you by your health care provider. Make sure you discuss any questions you have with your health care provider. Document Revised: 10/14/2021 Document Reviewed: 10/14/2021 [employer] Patient Education 2022 [employer]. Follow Up Care 01/14/2023 09:47:52 With:TYREL HINES, Inocencio Casiano, URL Address: [address] [place] [address] When: Unknown [facility] [place] 06-16-2023 Hospital Discharge instructions Patient Education 01/14/2023 09:46:44 Benign Prostatic Hyperplasia Benign Prostatic Hyperplasia Benign prostatic hyperplasia (BPH) is an enlarged prostate gland that is caused by the normal agingprocess. The prostate may get bigger as a man gets older. The condition is not caused by cancer. The prostate is a walnut-sized gland that is involved in the production of semen. It is located in front of the rectum and below the bladder. The bladder stores urine. The urethra carries stored urine ou t of the body. An enlarged prostate can press on the urethra. This can make it harder to pass urine. The buildup of urine in the bladder can cause infection. Back pressure and infection may progress to bladder damage and kidney (renal) failure. What are the causes? This condition is part of the normal aging process. However, not all men develop problems from thiscondition. If the prostate enlarges away from the [...] urethra. Follow these instructions at home: Take rgjo-cxw-jgdfirj and prescription medicines only as told by [...] provider. Document Revised: 02/03/2022 Document Reviewed: 02/03/2022 [employer] Patient Education 2022 [employer]. Follow Up Care 07/19/2022 10:30:26 With:TYREL HINES, Inocencio Casiano, URL Address: [facility] [address], [place] [phone] When:Within 6 Month(s) Comments:PSA [facility] [place] 12-19-2022 Hospital Discharge instructions Patient Education 07/19/2022 08:22:34 Benign Prostatic Hyperplasia Benign Prostatic Hyperplasia Benign prostatic hyperplasia (BPH) is an enlarged prostate gland that is caused by the normal agingprocess and not by cancer. The prostate is [...] urethra. Follow these instructions at home: Take yojt-qpe-jzmihnw and prescription medicines only as told by [...] 07/18/2006 Document Revised: 06/12/2019 Document Reviewed: 08/22/2017 [employer] Patient Education 2019 [employer]. Follow Up Care 01/18/2022 11:22:59 With:TYREL HINES, RADHA Mauricio Address: [facility] [address] , [place] [address]- When:Within 6 Month(s) Comments:Mohsen GOMEZ [facility] 06-20-2022 Hospital Discharge instructions Patient Education 01/18/2022 11:11:52 [...] who: Are older than age 65. Are -[place]. Are obese. Have a family history of [...] prostate and lymph nodes with the help ofa robotic arm that is controlled by a [...] cells. Follow these instructions at home: Take ghei-pzv-kqwklbq and prescription medicines only as told by your health care provider. Maintain a healthy diet. Get plenty of sleep. Consider joining a support group for men who have prostate cancer. Meeting with a support group mayhelp you learn to cope with the stress [...] prostate cancer. Meeting with a support group mayhelp you learn to cope with the stress of having cancer. This information is not intended to replace advice given to you by your health care provider. Make sure you discuss any questions you have with your health care provider. Document Released: 07/18/2006 Document Revised: 06/30/2018 Document Reviewed: 03/28/2017 [employer] Patient Education 2020 [employer]. Follow Up Care 07/20/2021 10:50:48 With:Inocencio SARAH MD, URL Address: [facility] [address], [place] [phone] When:07/20/2022 Comments:JASON Connolly [facility] evaluation + Plan note Future Appointments Appointment Date:07/16/2022 09:30:00 AM Scheduled Provider:Inocencio SARAH MD Location:[facility] Appointment Type:URO Office Visit Diagnostic Tests Pending * PSA Total 01/18/22 [facility] evaluation + Plan note Future Appointments Appointment Date:01/07/2023 08:30:00 AM Scheduled Provider:Inocencio SARAH MD Location:[facility] Appointment Type:URO Office Visit Diagnostic Tests Pending * PSA Total 07/19/22 [facility] evaluation + Plan note Future Appointments Appointment Date:07/18/2023 08:45:00 AM Scheduled Provider:Inocencio SARAH [facility] Type:[facility]O Office Visit Diagnostic Tests Pending * PSA Total 01/14/23 [facility] evaluation + Plan note Future Appointments Appointment Date:01/23/2024 10:15:00 AM Scheduled Provider:Inocencio SARAH MD Location:[facility] Appointment Type:URO Office Visit Diagnostic Tests Pending * PSA Total 11/30/23 [facility] evaluation + Plan note Future Appointments Appointment Date:07/16/2024 08:45:00 AM Scheduled Provider:Inocencio SARAH MD Location:[facility] Appointment Type:URO Office Visit Diagnostic Tests Pending * PSA Total 01/23/24 [facility] evaluation + Plan note Future Appointments Appointment Date:01/07/2025 08:45:00 AM Scheduled Provider:Ioncencio SARAH MD Location:[facility] Appointment Type:URO Office Visit Diagnostic Tests Pending * PSA Total 07/16/24 [facility] evaluation + Plan note Future Appointments Appointment Date:07/05/2025 08:30:00 AM Scheduled Provider:Inocencio SARAH MD Location:[facility] Appointment Type:URO Office Visit Diagnostic Tests Pending * PSA Total 01/07/25 [facility] evaluation note* Diagnosis Onset Date Resolution Status Shingles [facility] Work Phone: Hospital course Narrative No data available for this section [facility] progress note No data available for this section [facility] Summary Purpose Family History No Family [...] section and content) DATE CREATED AUTHOR 01/25/2018 [facility] DATE CREATED AUTHOR AUTHOR'S ORGANIZ ATION 07/24/2022 [facility] DATE CREATED AUTHOR AUTHOR'S ORGANIZ ATION 03/08/2025 [facility] Care Team (unrecognized sect ion and content) Team Status: Active Member Role Status Dates MYRIAM Oliveira Primary Care Provider Active Team Status: Inactive Member Role Status Dates Apurva Kennedy APRN Attending Provider Active Start: April 16, 2024 End: April 16Samy Garcíaimary Care ProviderActive Start: April 16, 2024 End: April 16, [...] BE BASED ON THE PRIMARY CLINICAL RECORDS. [employer] [facility]. provides no warranty or guarantee of the accuracy or completeness of information in this document.
[2025-06-25 11:42] LABS: Prostate Specific Antigen Dx <0.13 ng/mL (<=4.00)
== END 2025-06-25 09:58 | disposition home or self-care (01) ==
LOC: LAB 09:58
PROVIDERS: PCP Family Medicine; Visit Provider Urology
DX: N40.1 Benign prostatic hyperplasia with lower urinary tract symptoms (principal)
CPT/HCPCS: 36415; 84153